=== PATIENT | male | born 1955 | race Caucasian/White ===

== ENCOUNTER 2016-09-03 10:11 | Observation (INO) ==
[2016-09-03] MEDS ORDERED: NS 2,000 ML ONE (10:16)
[2016-09-03] MEDS ORDERED: NS 1,000 ML IV ONE (10:22)
[2016-09-03] MEDS ORDERED: REGLAN IV ONE (10:23)
[2016-09-03] MEDS ORDERED: PHENERGAN IV ONE (10:23)
[2016-09-03] MEDS ORDERED: SODIUM CHLORIDE 0.9% INJ ONE (10:23)
[2016-09-03 10:33] LABS: MANUAL DIFF NEEDED? NO
[2016-09-03 10:36] LABS: EOS# 0.18 X1000 (0.0-0.7); EOS% 2.2 % (0.0-10.0); HEMATOCRIT 43.6 % (42.0-52.0); HEMOGLOBIN 13.4 g/dL (14.0-18.0); IMM GRAN# 0.18 X1000 (0.0-0.04); IMM GRAN% 2.2 % (0.0-0.5); LYMPH# 1.51 X1000 (1.2-3.4); LYMPH% 18.6 % (20.5-51.1); MCH 28.2 PG (27-31); MCHC 30.7 g/dL (33-37); MCV 91.6 FL (81-99); MONO% 4.9 % (1.7-9.3); MPV 10.8 FL (7.4-10.4); NEUT% 71.1 % (42.2-75.2); PLT 183 X1000 (130-400); RBC 4.76 XMIL (4.7-6.1)
[2016-09-03 10:52] LABS: ALBUMIN 3.6 g/dL (3.5-5.0); POTASSIUM 3.9 mmol/L (3.5-5.1); TOTAL BILIRUBIN 0.22 mg/dL (0.20-1.00); TOTAL PROTEIN 5.9 g/dL (6.3-8.3)
--- NOTE | 2016-09-03 11:40 | Diag Imaging Result Doc PS360 ---
FLAT/UPRIGHT ABD/1 VIEW CHEST - 09/03/2016 INDICATION: vomiting and diarrhea TECHNIQUE: Three views COMPARISON: 11/03/2015 FINDINGS: The chest is clear. There are numerous stable suture lines and surgical clips in the upper abdomen. Stable IVC filter. Stable densities over the inferior lumbar spine. No bowel obstruction or free air visible. IMPRESSION: No acute disease or change from prior. Electronically signed by Chet Hammer 09/03/2016 11:38 AM
--- NOTE | 2016-09-03 13:24 | PROVIDER DOCUMENTATION ---
This chart was entered by Ary Dietrich Scribe, acting as scribe for Danyel Steward MD. HPI-General Adult - General Chief Complaint: Nausea/Vomiting Stated Complaint: AMS Time Seen by Provider: 09/03/16 10:23 Source: patient, family (Son and ) Allergies/Adverse Reactions: Patient Allergies Allergy/AdvReac Type Severity Reaction Status Date / Time No Known Allergies Allergy Verified 09/03/16 10:54 Home Medications: Home Medication List Medication Instructions Recorded Confirmed Last Taken Type Fludrocortisone [Florinef] 0.1 mg PO DAILY #0 tablet 12/30/11 11/03/15 11/03/15 09:00 Rx Alprazolam [Xanax] 0.5 mg PO BID 04/02/13 11/03/15 11/03/15 09:00 History Fluoxetine [Prozac] 40 mg PO DAILY 04/02/13 11/03/15 11/03/15 09:00 History Hydrocodone/APAP 10 mg/325 mg 10 mg PO TID 04/02/13 11/03/15 06/28/15 05:00 History [[place]-10] Metoprolol [Lopressor] 50 mg PO DAILY 04/02/13 11/03/15 11/03/15 09:00 History Zolpidem [Ambien] 5 mg PO QHS 04/02/13 11/03/15 11/02/15 20:00 History Fluticasone 50 Mcg Nasal [place] 1 spray KENN DAILY 09/27/13 11/03/15 06/28/15 History [Flonase] Prednisone 7.5 mg PO DAILY 09/27/13 11/03/15 06/28/15 History Diphenoxylate/Atropine [Lomotil] 1 each PO PRN PRN 12/09/14 11/03/15 Unknown History Omeprazole [Prilosec] 20 mg PO DAILY 12/09/14 11/03/15 11/03/15 09:00 History Promethazine [Phenergan] 25 mg PO Q8H PRN PRN 12/09/14 11/03/15 Unknown History Acetaminophen/Diphenhydramine 1 each PO Q6-8H PRN PRN #30 tablet 06/28/15 Unknown Rx [Percogesic 325-12.5 mg Tablet] Tizanidine HCl [Zanaflex] 4 mg PO BID 06/28/15 11/03/15 11/03/15 09:00 History Docusate Sodium [Colace] 100 mg PO DAILY #10 capsule 11/03/15 Unknown Rx Donepezil [Aricept] 10 mg PO DAILY 11/03/15 11/03/15 11/03/15 09:00 History Magnesium Citrate [Citrate of 300 ml PO ONCE #1 bottle 11/03/15 Unknown Rx Magnesia] Memantine [Namenda] 10 mg PO BID 11/03/15 11/03/15 11/03/15 09:00 History Na Phos,M-B/Na Phos,Di-Ba [Fleet 133 ml ME HS PRN PRN #3 enema 11/03/15 Unknown Rx Enema] Ranitidine [Zantac] 150 mg PO BID 11/03/15 11/03/15 11/03/15 09:00 History - History of Present Illness -Gen Adult Nature of Presenting Problems: 60 year old male presents to the ER via EMS with complaint of syncope episode. Pt is present with son and . Pt has dementia as well as chronic diarrhea but states in the last 2-3 days the diarrhea has become worse and in the last 2 days the patient has experienced n/v episodes. Prior to calling EMS, pt became confused and slumped over to one side. Pt is currently awake and more aware. Onset/Duration: reports: 3 days ago Associated Symptoms: reports: diarrhea, nausea, vomiting Review of Systems - Adult - REVIEW OF SYSTEMS - ADULT Constitutional: denies: chills, fever Eyes: reports: no symptoms reported Ears, Nose, Mouth & Throat: reports: no symptoms reported Cardiovascular: reports: no symptoms reported Respiratory: reports: no symptoms reported Gastrointestinal: reports: diarrhea, nausea, vomiting Genitourinary: reports: no symptoms reported Musculoskeletal: reports: no symptoms reported Integumentary: reports: no symptoms reported Neurological: reports: loss of balance, syncope Psychiatric: reports: no symptoms reported Endocrine: reports: no symptoms reported Hematologic/Lymphatic: reports: no symptoms reported Allergic/Immunologic: reports: no symptoms reported All Other Systems: Reviewed and Negative Past History - Adult - PAST MEDICAL HISTORY-ADULT Review of Records: reports: Nursing Assessment Review, Medications Reviewed Cardiovascular: reports: blood clots, HTN Respiratory: reports: pneumonia (BOOP) Genitourinary: reports: kidney stones - PRIOR SURGERIES/PROCEDURES Surgical/Procedure History: reports: joint replacement, other - IMMUNIZATION STATUS Childhood Immunizations: See Nurse Assessment Flu Vaccine: See Nurse Assessment Physical Exam-General - CONSTITUTIONAL General Appearance: alert, no apparent distress - EYES Eyes: PERRL/EOMI, pink conjunctivae - HEAD, EARS, NOSE, MOUTH & THROAT HENMT: normocephalic/atraumatic. negative: moist mucous membranes - NECK Neck: non-tender, normal inspection - RESPIRATORY Respiratory: rales (right lung) - CARDIOVASCULAR Cardiovascular: normal peripheral pulses, regular rate, rhythm - GASTROINTESTINAL (ABDOMEN) Abdominal Exam: normal bowel sounds, non tender - MUSCULOSKELETAL Back Exam: no CVA tenderness, no vertebral tenderness Extremity: normal range of motion, normal inspection - SKIN Integumentary: normal color, warm/dry - NEUROLOGIC Neurologic: grossly normal, no motor/sensory deficits - PSYCHIATRIC Psych/Mental Status: normal mood/affect, normal thought process Progress - PLAN OF CARE/RESULTS Progress/Plan/Lab Results: Vital Signs - 8 hr 09/03/16 10:12 Temperature 97.9 F Pulse Rate 59 L Respiratory Rate 18 Blood Pressure 68/44 O2 Sat by Pulse Oximetry 95 Orders Category Date Time Status 0.9% Sodium Chloride Inj [Ns] 1,000 ml Med 09/03/16 10:16 Discontinued .ROUTE As Directed Result Diagrams: 09/03/16 10:08 09/03/16 10:08 - EKG 1 Time of EKG reading by physician:: 09:52 EKG Read and Signed by:: Danyel Steward EKG Interpretation (*Must complete 3 of following elements*): Abnormal Rate: 59 Rhythm: sinus bradycardia QRS: LVH (voltage criteria for left ventricular hypertrophy) ST Wave: elevated (ST elevation, consider early repolarization, pericarditis, or injury) Comments: abnormal ECG - CONSULTS/PCP/HOSPITALIST Notification #1 *Consult/PCP/Hospitalist*: Christ Time Discussed: 13:20 Consult Disposition: Will see in ED Departure - Departure Date of Disposition Decision: 09/03/16 Time of Disposition Decision: 13:20 DIAGNOSIS: Dehydration, severe Vomiting Qualifiers: Vomiting type: unspecified Vomiting Intractability: unspecified Nausea presence : with nausea Qualified Code(s): R11.2 - Nausea with vomiting, unspecified Disposition: [facility] 02 Certified Medical Emergency: Emergent Condition: Stable - Critical Care Note This patient required my direct & personal management of CC.: No This chart was documented by the indicated scribe, (Ary Dietrich, Scribe) and accurately reflects the services I performed and decisions made by me, Danyel Steward MD, as attested by the provider's signature.
--- NOTE | 2016-09-03 14:02 | Diag Imaging Result Doc PS360 ---
HEAD W/O CONTRAST - 09/03/2016 INDICATION: Headache, Syncope, Nausea/vomiting TECHNIQUE: A CT dose reduction protocol was used. COMPARISON: 11/03/2015 FINDINGS: The ventricles and sulci are normal in size and contour. No intracranial mass or hemorrhage. The skull is intact. The sinuses mastoids and middle ears are clear. IMPRESSION: Negative exam. Electronically signed by Chet Hammer 09/03/2016 2:00 PM
[2016-09-03] MEDS ORDERED: ZOFRAN IV PRN (16:10)
[2016-09-03] MEDS ORDERED: LOMOTIL PO PRN (16:10)
[2016-09-03] MEDS: NS 1,000 ML IV SCH (16:17)
--- NOTE | 2016-09-03 16:46 | HISTORY AND PHYSICAL ---
PRIMARY CARE PHYSICIAN: Dr. Wray. CHIEF COMPLAINT: Syncope. HISTORY OF PRESENT ILLNESS: Mr. Alonzo is a 60-year-old male with a past medical history of Alzheimer's dementia, GERD, hypertension, chronic kidney disease, anxiety, copper deficiency, coronary artery disease status post cardiac stent, who presented to the emergency room after having a syncopal episode today. The patient's spouse reports that she witnessed him have a syncopal episode that lasted approximately 20 minutes. He did not have any kind tonic-clonic movement or any urinary incontinence with the episode or any preceding chest pain or additional symptoms. He did have a period of being coherence and confusion initially right after the episode for some time, she reports. He has had a headache and nausea and vomiting over the last week, vomiting several times a day. She denies any blood in his emesis or stool. No recent fever or chills. No recent antibiotics or other symptoms. He denies any vision changes. He denies any numbness and then denies any unilateral weakness. He also has had a decreased appetite and also of note has had diarrhea intermittently for a year and a half, she reports. The patient will be admitted for further evaluation and treatment. PAST MEDICAL HISTORY: 1. Alzheimer's dementia. 2. Gastroesophageal reflux disease. 3. Hypertension. 4. Kidney stones. 5. Chronic kidney disease. 6. Anxiety. 7. DVT. 8. Arthritis. 9. Copper deficiency. 10. Coronary artery disease status post cardiac stent. 11. Hiatal hernia. PAST SURGICAL HISTORY: 1. Appendectomy. 2. Cholecystectomy. 3. Esophagus revision. 4. Gastrectomy secondary to complications from a hiatal hernia repair. 5. Transurethral resection of the prostate. 6. Right knee arthroscopy. 7. IVC filter. 8. Cardiac stent. 9. Cervical fusion. SOCIAL HISTORY: Patient is a nonsmoker. He is a former smoker. He quit approximately 1 year ago and had smoked for 40 years prior to this. He denies any alcohol or drug use. He does live with his . FAMILY HISTORY: Positive for prostate cancer with his father, coronary artery disease with his father and several brothers, positive CVA with his mother, and positive brain cancer with his brother. ALLERGIES: No known drug allergies. MEDICATIONS: Pending reconciliation. LABORATORIES AND DIAGNOSTICS: CBC: White count 8.13, hemoglobin and hematocrit 13.4 and 43.6, platelets 183,000. BMP: Sodium 141, potassium 3.9, chloride 106, CO2 19, BUN 22, creatinine 1.9, glucose 192, calcium 8, AST 32, ALT 45, alkaline phosphatase 123. Abdominal x-ray which shows no acute abnormality. Head CT was negative for any acute abnormality. Initial troponin and CPK were within normal limits. REVIEW OF SYSTEMS: Ten point review of systems negative other than previously stated in HPI. PHYSICAL EXAMINATION: VITAL SIGNS: Temperature 97.9 degrees, pulse 59, respirations 18, blood pressure initially was 68/46, after he has received some IV fluid it is currently 95/67, oxygen saturation 95% on room air. HEENT: Normocephalic, atraumatic. Mucous membranes slightly moist. Face symmetrical. NECK: Supple. No JVD. CHEST: Bilateral breath sounds diminished. No accessory muscle use noted. CARDIOVASCULAR: Normal S1, S2. ABDOMEN: Abdomen is soft, nontender, nondistended. Positive bowel sounds. EXTREMITIES: No evidence of clubbing, cyanosis, or edema. NEUROLOGIC: Patient is alert and oriented x4. No neurological deficits noted. Pupils equal, round, reactive to light. Bilateral hand grasps equal. No dysmetria noted to upper extremities. Bilateral lower extremity strength equal. ASSESSMENT AND PLAN: 1. Syncope. Will admit and evaluate with carotid ultrasound as well as echo and serial cardiac enzymes. Head CT was negative. 2. Headache. Patient with continued headache and nausea, vomiting. He has previously been diagnosed with migraines according to family member. This could be a component as well. CT was negative. 3. Hypotension. Will continue to follow. He is on several medications. We will hold any medications that could cause hypotension and continue to monitor this with hydration. 4. Nausea, vomiting. We will provide antiemetics and hydration. 5. Diarrhea. We will continue to follow. 6. Chronic kidney disease. This appears to his norm. Last year at this time his creatinine was 1.8. 7. Hyperglycemia. We will perform a hemoglobin A1c and continue to follow. 8. Further orders pending physician evaluation. Dictated by JOSH Harrington for Aldair Larsen MD cc: JOSH Harrington MD
[2016-09-03 17:11] LABS: HEMOGLOBIN A1C 5.6 % (4.8-6.0)
[2016-09-03 19:29] LABS: URINE CULTURE NEEDED? NO; URINE MICRO REVIEW NEEDED? NO; URINE SOURCE CLEAN CATCH
[2016-09-03 19:32] LABS: BILIRUBIN URINE NEGATIVE (NEGATIVE); BLOOD URINE NEGATIVE (NEGATIVE); COLOR YELLOW; GLUCOSE URINE NEGATIVE (NEGATIVE); LEUKOCYTES URINE NEGATIVE (NEGATIVE); NITRITE URINE NEGATIVE (NEGATIVE); PROTEIN URINE NEGATIVE (NEGATIVE); SP GRAVITY URINE 1.014; TURBIDITY URINE CLEAR (CLEAR); UROBILINOGEN URINE NORMAL (NORMAL)
[2016-09-03 19:33] LABS: UR EPITHELIAL CELLS <10 /HPF (<10); URINE BACTERIA NEGATIVE /HPF; URINE RBC <10 /HPF (<10); URINE WBC <10 /HPF (<10)
[2016-09-03] MEDS: NAMENDA PO SCH (20:20)
[2016-09-03] MEDS: ZANTAC PO SCH (20:20)
[2016-09-04] MEDS: NS 1,000 ML IV SCH ×2 (05:04→18:36)
[2016-09-04 05:13] LABS: HEMATOCRIT 40.6 % (42.0-52.0); HEMOGLOBIN 12.5 g/dL (14.0-18.0); MCH 28.2 PG (27-31); MCHC 30.8 g/dL (33-37); MCV 91.4 FL (81-99); RBC 4.44 XMIL (4.7-6.1)
[2016-09-04 05:46] LABS: ALBUMIN 3.5 g/dL (3.5-5.0); POTASSIUM 3.9 mmol/L (3.5-5.1); TOTAL BILIRUBIN 0.32 mg/dL (0.20-1.00); TOTAL PROTEIN 5.6 g/dL (6.3-8.3)
[2016-09-04] MEDS: PRILOSEC PO SCH (06:17)
[2016-09-04] MEDS: PREDNISONE PO SCH (09:23)
[2016-09-04] MEDS: PROZAC PO SCH (09:23)
[2016-09-04] MEDS: NAMENDA PO SCH ×3 (09:23→20:00)
[2016-09-04] MEDS: ZANTAC PO SCH ×3 (09:23→20:00)
[2016-09-04] MEDS: ARICEPT PO SCH (09:24)
[2016-09-04] MEDS: FLORINEF PO SCH (09:24)
[2016-09-04 10:42] LABS: AMYLASE 53 U/L (20-200); LIPASE 10 U/L (13-60)
--- NOTE | 2016-09-04 10:57 | PROGRESS NOTE ---
DATE: 09/04/2016 SUBJECTIVE: Patient reports feeling fine. No more episodes of syncope. No chest pain. No shortness of breath. He is still having diarrhea but he reports that it is better. OBJECTIVE: Vital Signs: Temperature 97.8 degrees, heart rate 58, respiratory rate 18, blood pressure 155/79, O2 saturation 99% on room air. General Examination: This is a chronically ill- looking, 60-year-old, male, looking older than his age, lying in bed, in no acute distress. HEENT: Head is normocephalic and atraumatic. Anicteric sclerae and pale conjunctivae. Mucous membranes moist. Neck: Supple. No JVD noted. No carotid bruits. No lymphadenopathy. No thyromegaly. Cardiovascular Examination: S1 and S2 heard. No murmurs, gallops, or rubs. Regular rate and rhythm. Respiratory Examination: Clear bilaterally to auscultation. No work of breathing or using accessory muscles. Abdomen: Soft, nontender to palpation. Bowel sounds present. No organomegaly. Extremities: No clubbing, cyanosis, or edema. Peripheral pulses present in both legs. Neurological Examination: Patient alert and oriented x3. Moves 4 extremities. Laboratory Data: White cell count 7.49, hemoglobin 12.5, hematocrit 40.6, platelets 163,000. BMP remarkable for creatinine 1.3, calcium 8. ASSESSMENT AND PLAN: 1. Syncope. We do not know exactly why this patient had syncope. At this time, what we have done is ordered a CT of the head which is negative. A carotid ultrasound and echocardiogram are still pending. We will continue this patient on telemetry, 2. Headaches. Patient usually has headaches, although the 1 that he had yesterday, according to him, was really worse than usual. A CT of the head did not show any bleeding but to complete the workup, I prefer to do an MRI of the brain without contrast. 3. Hypotension. That condition is stable. Patient has been on intravenous fluids and all antihypertensive medication has been stopped. Now blood pressure is in the range of 151/70. If it goes higher than that, we need to restart some of his medications. 4. Nausea and vomiting. That condition has completely resolved. 5. Chronic diarrhea. Patient had bariatric surgery 30 years ago. Since then, he has had diarrhea that has been going on for that period of time. In any case, we prefer to call gastroenterology. Patient already let me know that he refused to have any procedures provided by gastroenterology but he it is okay to talk to him. 6. Chronic kidney disease, although the 1 year ago, the creatinine was 1.8 and yesterday was 1.7. Surprisingly, the creatinine is getting better. We will continue checking BMP. 7. Hyperglycemia. We have checked hemoglobin A1c and that is normal and also the BMP, the glucose was back to normal too. cc: Aldair Larsen MD
--- NOTE | 2016-09-04 13:45 | Diag Imaging Result Doc PS360 ---
US ABDOMEN-COMPLETE - 09/04/2016 INDICATION: transient elevated liver enzymes COMPARISON: 09/07/2011 FINDINGS: The gallbladder has been removed. Common bile duct measures 5 mm. The pancreas is obscured. The liver, spleen, and both kidneys are normal. Spleen size is 11.6 x 11.3 x 5 cm. Aorta, IVC, and main portal vein are patent. No free fluid. IMPRESSION: Negative exam. Electronically signed by Chet Hammer 09/04/2016 1:43 PM
--- NOTE | 2016-09-04 15:14 | ECHO REPORT ---
ORDER DATE: 09/04/2016 INDICATION: Syncope. FINDINGS: 1. Right atrium is normal size. 2. Mild tricuspid regurgitation. RV systolic pressure of 45. 3. Normal RV size and systolic function. 4. No significant pulmonic insufficiency. 5. Mild left atrial enlargement at 4.9 cm. 6. There is slight prolapse of the posterior mitral leaflet with trace mitral regurgitation. No evidence of mitral stenosis. 7. Normal LV size with normal wall thicknesses. LV systolic function is calculated at 54% with normal wall motion. Some views in the short axis the parasternal short axis were off axis. 8. Aortic valve opens well. It is trileaflet. No evidence of stenosis or insufficiency. 9. Aorta appears normal in visualized segments. 10. No pericardial effusion seen. cc: MD Lissett Whaley CRNP
[2016-09-04] MEDS: METAMUCIL PO SCH ×4 (19:53→20:00)
[2016-09-04 20:13] LABS: INR 1.21; PROTIME 12.9 Seconds (9.2-11.7)
[2016-09-04] MEDS ORDERED: AMBIEN PO SCH (21:00)
[2016-09-04] MEDS ORDERED: COUMADIN PO SCH (21:30)
--- NOTE | 2016-09-04 21:41 | CONSULTATION ---
DATE OF CONSULTATION: 09/04/2016 REASON FOR CONSULTATION: Chronic diarrhea. HISTORY OF PRESENT ILLNESS: Mr. Alonzo is a 60-year-old male, who was admitted on 09/03/2016 with symptoms of syncope. Currently according to the patient's records, the patient had a syncopal episodes lasting about 20 minutes at home. He has a known history of coronary artery disease status post stenting, chronic kidney disease, copper deficiency, Alzheimer's dementia, GERD, hypertension, chronic kidney disease. He is currently undergoing cardiac workup. Gastroenterology was consulted for chronic diarrhea. The patient has history of chronic diarrhea the last 30 years. When he was 29 years old the patient had a hiatal hernia surgery done [place]. It was complicated and he lost about 100 pounds. He went to [facility] where he had 11-hour surgery where they had to take a part of his distal esophagus and 2/3 of his stomach and postoperatively he had symptoms of episodic chronic diarrhea. His regular bowel frequency are about 5-7 per day. He does have nocturnal diarrhea episodes as well. He denies noticing any blood in the stools. He also complains of intermittent bloating discomfort in the abdomen. He denies any current nausea or vomiting. His last EGD/colonoscopy was done by Dr. Reeves in 2011 which showed evidence of partial gastrectomy and anastomosis in the distal body of the stomach and about 37 cm of esophagus left. His colon was normal, but did have some stool and he was recommended to follow up in 5 years to 10 years. PAST MEDICAL HISTORY: 1. Alzheimer's dementia. 2. GERD. 3. Hypertension. 4. Kidney stones. 5. Chronic kidney disease. 6. Anxiety. 7. DVT. 8. Arthritis. 9. Copper deficiency. 10. Coronary artery disease status post cardiac stent. 11. Hiatal hernia. PAST SURGICAL HISTORY: 1. Appendectomy. 2. Cholecystectomy. 3. Hiatal hernia repair 30 years ago. 4. Hiatal hernia surgery revision requiring distal esophagectomy and 2/3 of the stomach removal accounting for subtotal gastrectomy at [facility]. 5. Transurethral resection of the prostate. 6. Right knee arthroscopy. 7. IVC filter. 8. Cardiac stent. 9. Cervical fusion. 10. EGD/colonoscopy in [address] Reeves. SOCIAL HISTORY: He is a former smoker. Quit about a year ago. Prior to that, 40 year history of smoking. Denies any alcohol or illicit drug abuse. He is . He has a very supportive at the bedside. FAMILY HISTORY: Prostate cancer in his father and coronary artery disease in his father and several brothers and CVA in his mother and brain cancer in his brother. ALLERGIES: No known drug allergies. MEDICATIONS: Reviewed. REVIEW OF SYSTEMS: Denies any current fevers, rigors, chills, chest pain, shortness of breath at rest. Denies any new genitourinary complaints. Denies any neurologic complaints. At home he did have syncopal episode which is currently being investigated by the primary care team. PHYSICAL EXAMINATION: Vital signs: Temperature of 98.3 degrees, pulse rate 65 , respiratory rate 16, blood pressure 169/90, saturating 98% room air. Body weight of 179 pounds 4.8 ounces, BMI 24.3 kg/m2. General: Moderately built, moderately nourished, lying in bed, in no acute distress. HEENT: No pallor. No icterus. Pupils equal, react to light. Neck : Supple. Chest: Decreased breath sounds. Cardiovascular: Regular rate and rhythm. No murmur. Abdomen: Mildly protuberant, scar storm noted from prior surgery. Bowel sounds are present. No guarding. No rebound. Extremities: No cyanosis, clubbing, edema. Neurologic: Alert, awake, oriented. LABORATORY: Hemoglobin and hematocrit is 12.5 and 40.6, white count of 7.49, platelet count 163,000, MCV of 91.4. Sodium 145, potassium 3.9, chloride 113, bicarb 23, anion gap of 9, BUN of 16, creatinine 1.3, glucose of 81, calcium is 8, total bilirubin is 0.32, AST 25 , ALT 36, alkaline phosphatase is 101. Total protein 5.6, albumin of 3.5, troponin less than 0.01. Amylase of 50, lipase of 10. Urinalysis clear. IMAGIN. He had an abdominal ultrasound done on 09/01/2016 which showed negative exam. CBD measuring 5 mm. Spleen size 11.6 and 11.3 cm. The gallbladder has been removed. 2. Abdominal x-ray on 09/03/2016 showed no acute disease pr change from prior. Stable IVC filter. No bowel obstruction. 3. Head CT done during this admission was negative exam. IMPRESSION AND PLAN: 1. Syncope. Unclear etiology. Currently undergoing workup. We will await cardiology clearance before proceeding with gastrointestinal workup. 2. Chronic diarrhea since 30 years after hiatal hernia revision surgery where he had distal esophagitis and subtotal gastrectomy. It could very well be dumping syndrome , but we will evaluate. 3. History of alternating diarrhea with some days of constipation. Could be irritable bowel syndrome. We will check the stool studies. 4. History of coronary artery disease status post stenting. I will follow up on the cardiology workup. 5. Gastrointestinal prophylaxis with proton pump inhibitor. 6. We will start him on Metamucil to help empty his bowels better. 7. Further recommendations to follow pending the hospital course. If the patient gets cleared by Cardiology, he can probably be discharged to follow with us as an outpatient for possible EGD and colonoscopy. 8. I discussed the findings with the patient and family. cc: MD Aldair Khan MD Akram Haggag, MD MTDD
[2016-09-05 05:25] LABS: INR 1.17; PROTIME 12.4 Seconds (9.2-11.7)
--- NOTE | 2016-09-05 05:34 | EKG Report ---
Test Performed on : 09/03/2016 09:52:43 AM Test Reason : syncope Blood Pressure : / mmHG Vent. Rate : 059 BPM Atrial Rate : 059 BPM P-R Int : 174 ms QRS Dur : 098 ms QT Int : 482 ms P-R-T Axes : 007 -15 -17 degrees QTc Int : 477 ms Sinus bradycardia. Voltage criteria for left ventricular hypertrophy ST elevation, consider early repolarization, pericarditis, or injury Abnormal ECG When compared with ECG of 03-NOV-2015 13:08, T wave amplitude has decreased in Lateral leads Unconfirmed Result
[2016-09-05] MEDS: NS 1,000 ML IV SCH ×2 (06:08→08:18)
[2016-09-05] MEDS: PRILOSEC PO SCH (06:08)
[2016-09-05] MEDS: NAMENDA PO SCH (08:14)
[2016-09-05] MEDS: PROZAC PO SCH (08:14)
[2016-09-05] MEDS: ZANTAC PO SCH (08:14)
[2016-09-05] MEDS: PREDNISONE PO SCH (08:14)
[2016-09-05] MEDS: FLORINEF PO SCH (08:15)
[2016-09-05] MEDS: ARICEPT PO SCH (08:15)
[2016-09-05] MEDS: METAMUCIL PO SCH ×2 (08:15)
[2016-09-05] MEDS ORDERED: NORCO-10 PO PRN (08:47)
[2016-09-05] MEDS ORDERED: ZANAFLEX PO SCH (09:00)
[2016-09-05] MEDS ORDERED: LOPRESSOR PO SCH ×2 (09:00)
--- NOTE | 2016-09-05 09:14 | Diag Imaging Result Doc PS360 ---
EXAM: MRI BRAIN W/O CONTRAST INDICATION: syncope COMPARISON: 12/04/2012 FINDINGS: There is no evidence of acute infarct. There is minimal patchy T2/FLAIR hyperintensity in the periventricular and subcortical white matter suggesting very mild microangiopathy, stable. There is an incidental small developmental venous anomaly in the right parietal lobe, stable. There is a small left periventricular chronic lacunar infarct that has developed during the interval. There is low signal associated with this region on the coronal gradient sequence indicating old blood products, but it was not present previously. There is no discrete intracranial mass, mass effect, or acute intracranial hemorrhage, otherwise. The surrounding soft tissues and bony structures are essentially unremarkable. IMPRESSION: 1.Minimal stable chronic appearing white matter changes. 2.Interval development of a small chronic lacunar infarct in the periventricular white matter with evidence of old blood products/hemosiderin in the region. 3.No definite acute intracranial pathology. Electronically signed by Geovanny Dowd 09/05/2016 9:11 AM
--- NOTE | 2016-09-05 12:04 | PROGRESS NOTE ---
DATE: 09/05/2016 SUBJECTIVE: The patient is resting in a chair. He is feeling better. He had 1 bowel movement today. He denies any nausea, vomiting, or abdominal pain. Denies any history of seeing blood in the stools. He denies any fevers, rigors, or chills. He had an MRI this morning of his brain which showed minimal stable chronic appearing white matter changes, interval development of small chronic lacunar infarct in the periventricular white matter with evidence of old blood products/hemosiderin in the region, no definite acute intracranial pathology was noted. OBJECTIVE: Vital Signs: Temperature of 98.6 degrees, pulse rate of 67, respiratory rate of rate 18, blood pressure of 199/89, saturating 97% on room air. Body weight of 181 pounds 6.4 ounces. General Appearance: Moderate built, moderately nourished, sitting in a chair, in no acute distress. HEENT: No pallor. No icterus. Pupils equal, react to light and accommodation. Neck: Supple. Abdomen: Soft, nontender, nondistended. Bowel sounds are present. No guarding. No rebound. Extremities: No cyanosis or clubbing. Neurologic: Alert, awake, oriented. Labs: Hemoglobin and hematocrit are 12.4 and 40.6 from yesterday. Today, INR is 1.17, PT of 12.4. No other labs were drawn today. Stool Studies: Gram stain is none. No white cells. Stool culture preliminary , no enteric pathogens. Stool for white cells, none seen. Ova and parasites negative. Final results are pending. C. difficile toxin negative, antigen negative. IMPRESSION AND PLAN: 1. Chronic diarrhea for the last 30 years. It could be irritable bowel syndrome versus incomplete emptying of the colon from prior abdominal surgeries. We will give a trial of Metamucil 1tbsp PO BID. Stool studies have been unremarkable. We will follow the final results. 2. Syncope of unclear etiology. He is undergoing workup. 3. History of atrial fibrillation, coronary artery disease, status post stenting. He is on Coumadin per the primary team. 4. Gastrointestinal prophylaxis with proton pump inhibitors. 5. Bowel regimen, Metamucil. 6. We are not planning to perform EGD and colonoscopy during this admission. Once he is cleared from the syncope workup, then he will call us as an outpatient to schedule EGD and colonoscopy. His Coumadin will have to be held 5-7 days before performing EGD and colonoscopy in the near future. 7. The above plan was discussed with the patient. All his questions were answered. cc: MD Cathie Khan MD Dr. Garcia MTDD
[2016-09-05 12:30] VITALS: BP 132/60
--- NOTE | 2016-09-05 20:55 | Carotid Study ---
DATE: 09/04/2016 PROCEDURE: Bilateral duplex and color flow imaging of the carotid arteries was performed using a [employer] Vivid E9 ultrasound system and a 9L-D transducer. REFERRING PHYSICIAN: Dr. Polo INTERPRETING PHYSICIAN: NASIMA Mike INDICATIONS: Syncope. OBSERVED DATA RIGHT LEFT Brachial Blood Pressure Carotid Pulse Bruits: Carotid/Sub DIAGRAM OF ULTRASOUND IMAGING R L RIGHT INT EXT INT EXT LEFT Pablo (cm/s) Pablo (cm/s) Subclavian 90/0 Subclavian 92/0 CCA Proximal 74/9 CCA Proximal 81/12 CCA Distal 80/15 CCA Distal 50/9 Bulb 47/11 Bulb 52/14 ICA Proximal 40/11 ICA Proximal 40/14 ICA Mid 54/21 ICA Mid 55/25 ICA Distal 70/26 ICA Distal 67/28 ECA 71/10 ECA 65/9 Vertebral 33/10, antegrade flow Vertebral 47/10, antegrade flow ICA/CCA Ratio 0.87 ICA/CCA Ratio 0.3 % Stenosis 0-39% % Stenosis 0-39% FINDINGS: Minimal atherosclerosis that at this time does not produce any hemodynamically significant flow-limiting stenosis noted to bilateral carotid arteries. Both vertebral arteries are antegrade flow. PHYSICIAN INTERPRETATION: Essentially normal bilateral carotid ultrasound study with no hemodynamically significant flow-limiting stenosis. cc: MD Lissett Harris CRNP
[2016-09-05] MEDS ORDERED: COUMADIN PO SCH (21:00)
--- NOTE | 2016-09-06 14:22 | DISCHARGE SUMMARY ---
ADMISSION DATE: 09/03/2016 DISCHARGE DATE: 09/05/2016 CONSULTATIONS: Dr. Ingram with Gastroenterology PERTINENT PROCEDURES: 1. Head CT was a negative exam. 2. Abdominal ultrasound was negative exam. 3. Echocardiogram showed an EF of 54% with normal wall motion. 4. Brain MRI showed minimal stable chronic-appearing white matter changes, interval development of small chronic lacunar infarct in the periventricular white matter with evidence of old blood products, hemosiderin in the region. No definite acute intracranial pathology. DISCHARGE DIAGNOSES: 1. Chronic diarrhea for 30 years, irritable bowel syndrome versus incomplete emptying of the colon from prior abdominal surgeries. The patient is going to be on a trial of Metamucil. Stool studies have been unremarkable. Patient will follow up with Dr. Ingram for esophagogastroduodenoscopy and colonoscopy as an outpatient. 2. Syncope. CT of the head was negative. Echocardiogram showed an EF of 54% with normal wall motion. Carotid Dopplers have not resulted yet. No arrhythmias have been noted on the telemetry. Patient did undergo a brain MRI that showed minimal stable chronic-appearing white matter changes, interval development of small chronic lacunar infarct in the periventricular white matter with evidence of blood products, hemosiderin in the region. No definite acute intracranial pathology. 3. Headaches that are chronic. 4. Hypotension, resolved. 5. Nausea and vomiting, resolved. 6. Chronic kidney disease, stable. 7. Hyperglycemia. Patient's A1c was 5.6. Blood glucose on arrival was 192 and is now back to 81. 8. History of atrial fibrillation and coronary artery disease, status post stenting, on Coumadin therapy. HOSPITAL COURSE: Mr. Alonzo is a 60-year-old male with a past medical history of Alzheimer dementia, GERD, hypertension, chronic kidney disease, anxiety, copper deficiency , coronary artery disease status post stenting, on Coumadin therapy, who presented to the ED after having a syncopal episode that was witnessed by his spouse and lasted approximately 20 minute. He did not have any tonic clonic type movements or urinary incontinence with the episode or any preceding chest pain or additional symptoms. He did have a period of being incoherent and confused initially, right after the episode, lasting for some time. He has had a headache, nausea, and vomiting over the last week, vomiting several times a day. He denies any blood in it or in stool. No recent fever or chills. He denied any numbness or any unilateral weakness. Also noted diarrhea intermittently for 1-1/2 years. The patient underwent a head CT in the ED that was negative. He also underwent a carotid ultrasound and we are still awaiting those results. An echocardiogram showed an EF of 54%. Serial cardiac enzymes are negative. He did have some hypotension and he had some IV fluid resuscitation. His blood pressure medications were held. His nausea and vomiting completely resolved. He does have chronic diarrhea secondary to bariatric surgery that he had 30 years ago. GI was consulted to assess the patient. He also underwent a brain MRI that showed minimal stable chronic-appearing white matter changes and interval development of small chronic lacunar infarct in the periventricular white matter with evidence of old blood products, hemosiderin in the region. No definite acute intracranial pathology. Dr. Ingram was not planning to perform any EGD and colonoscopy during this admission. They could schedule it as an outpatient EGD and colonoscopy, and he will place him on Metamucil. His stool studies have been unremarkable. Dr. Polo has assessed the patient and feels he is appropriate for discharge home today. VITAL SIGNS ON DISCHARGE: Temperature is 98.3 degrees, heart rate 58, blood pressure 132/60, O2 is 98% on room air. DISCHARGE DIET: Regular. DISCHARGE MEDICATIONS: 1. Xanax 0.5 mg p.o. b.i.d. 2. Aricept 20 mg p.o. daily. 3. Florinef 0.1 mg p.o. daily. 4. Prozac 40 mg p.o. daily. 5. [place] 10/325, 10 mg p.o. t.i.d. p.r.n. 6. 10 mg p.o. b.i.d. 7. Lopressor 50 mg p.o. daily. 8. Prilosec 20 mg p.o. daily. 9. Prednisone 50 mg p.o. daily. 10. Phenergan 25 mg p.o. q.8 hours p.r.n. nausea. 11. Metamucil 1 each p.o. b.i.d. 12. Zantac 150 mg p.o. b.i.d. 13. Zanaflex 4 mg p.o. b.i.d. 14. Coumadin 2.5 mg p.o. on Monday, Monday, Monday at 2100. 15. Coumadin 5 mg p.o. Monday and Monday at 2100. 16. Ambien 5 mg p.o. at bedtime. FOLLOWUP: Patient is being discharged home with his . He will follow up with Dr. Ingram to schedule for outpatient EGD and colonoscopy. They have discussed that when this is scheduled, he will need to hold his Coumadin for 5-7 days prior to the procedure. He can follow up with his primary care physician, Dr. Cathie Wray, in 7-10 days. Patient can return to the ED for any worsening of symptoms. DISCHARGE TIME: Thirty five minutes. Dictated by JOSH Snow for Aldair Larsen MD cc: MD Cathie Romo MD MTDD
== END 2016-09-05 14:56 | disposition home or self-care (01) ==
LOC: SUPCPDRO → ED 10:11 → INTOOBSV 14:59 → 3S 14:59
PROVIDERS: ATTEND Internal Medicine

== ENCOUNTER 2018-05-30 10:44 | Inpatient (IN) ==
[2018-05-30 11:41] LABS: URINE SOURCE CLEAN CATCH
--- NOTE | 2018-05-30 11:44 | Diag Imaging Result Doc PS360 ---
EXAM: CHEST-PORTABLE 05/30/2018 HISTORY: SOB TECHNIQUE: AP portable at 1133 COMMENT: There are bilateral pleural effusions. Both effusions are larger than on 05/10/2018. There is opacification of portions of the mid left upper lobe which was not the case previously. There is increased atelectasis in the left base. IMPRESSION: Worsened pleural effusions. Atelectasis and/or pneumonia left upper lobe. Electronically signed by Gus Rosenberg 05/30/2018 11:42 AM
[2018-05-30 11:47] LABS: BILIRUBIN URINE NEGATIVE (NEGATIVE); BLOOD URINE TRACE (NEGATIVE); COLOR YELLOW; GLUCOSE URINE NEGATIVE (NEGATIVE); KETONE URINE NEGATIVE (NEGATIVE); LEUKOCYTES URINE NEGATIVE (NEGATIVE); NITRITE URINE NEGATIVE (NEGATIVE); PROTEIN URINE NEGATIVE (NEGATIVE); TURBIDITY URINE CLEAR (CLEAR); UROBILINOGEN URINE NORMAL (NORMAL)
[2018-05-30 11:48] LABS: ALLEN TEST YES; BE -0.5 mmoll (-3.0-3.0); BLOOD TYPE ARTERIAL; HCO3-(ACT) 24.4 mmoll (20.0-26.0); METHB 0.8 % (0.0-1.5); O2(CT) 17.1 mL/dL (15.0-23.0); PCO2(98.6) 34 mmHg (35-45); PO2(98.6) 59 mmHg (60-100); SAMPLE BLOOD; SAO2 93.2 % (95.0-100.0); THB 13.4 g/dL (11.5-17.4); pH(98.6) 7.44 (7.35-7.45)
[2018-05-30 11:48] LABS: UR EPITHELIAL CELLS <10 /HPF (<10); URINE BACTERIA NEGATIVE /HPF; URINE RBC <10 /HPF (<10); URINE WBC <10 /HPF (<10)
[2018-05-30 11:51] LABS: MODALITY NRB
--- NOTE | 2018-05-30 11:53 | EKG Report ---
Test Performed on : 05/30/2018 10:56:51 AM Test Reason : SOB Blood Pressure : / mmHG Vent. Rate : 114 BPM Atrial Rate : 114 BPM P-R Int : 138 ms QRS Dur : 094 ms QT Int : 382 ms P-R-T Axes : 002 -21 -01 degrees QTc Int : 526 ms Sinus tachycardia. Incomplete right bundle branch block Voltage criteria for left ventricular hypertrophy Nonspecific ST abnormality Prolonged QT Abnormal ECG When compared with ECG of 27-OCT-2017 19:42, ST now depressed in Anterior leads Unconfirmed Result
[2018-05-30 12:24] LABS: PTT 73.7 Seconds (22.3-41.8)
[2018-05-30 12:30] LABS: BASO# 0.05 X1000 (0.0-0.2); BASO% 0.2 % (0.0-0.8); EOS% 1.5 % (0.0-10.0); HEMATOCRIT 43.1 % (42.0-52.0); HEMOGLOBIN 13.2 g/dL (14.0-18.0); IMM GRAN# 0.07 X1000 (0.0-0.04); IMM GRAN% 0.3 % (0.0-0.5); LYMPH# 1.27 X1000 (1.2-3.4); LYMPH% 6.2 % (20.5-51.1); MCH 26.2 PG (27-31); MCHC 30.6 g/dL (33-37); MCV 85.5 FL (81-99); MONO# 1.23 X1000 (0.11-0.59); MONO% 6.1 % (1.7-9.3); MPV 10.6 FL (7.4-10.4); NEUT# 17.41 X1000 (1.4-6.5); NEUT% 85.7 % (42.2-75.2); PLT 308 X1000 (130-400); RBC 5.04 XMIL (4.7-6.1); RDW 14.9 % (11.5-14.5); WBC 20.33 X1000 (4.8-10.8)
[2018-05-30 12:42] LABS: ALB/GLOB RATIO 1.3; ALBUMIN 3.4 g/dL (3.5-5.0); CALCIUM 7.9 mg/dL (8.8-10.2); CREATININE 1.9 mg/dL (0.7-1.2); POTASSIUM 2.8 mmol/L (3.5-5.1); TOTAL BILIRUBIN 0.76 mg/dL (0.20-1.00); TOTAL PROTEIN 6.1 g/dL (6.3-8.3)
[2018-05-30 12:44] LABS: D-DIMER 7.06 ug/mLFEU (0.0-0.52); INR 6.04; PROTIME 57.7 Seconds (11.0-16.0)
[2018-05-30 12:46] LABS: BANDS 10 % (0-1); LYMPHS 2 % (21-51); MONO 8 % (1-9); SEGS 80 % (42-75)
[2018-05-30] MEDS ORDERED: VANCOMYCIN 1 GM/NS 1 GM/250 ML IVPB IV ONE ×2 (12:46→13:37)
[2018-05-30] MEDS ORDERED: ZOSYN 3.375 GM in NS 50 ML IV ONE (12:46)
[2018-05-30] MEDS ORDERED: VITAMIN K 5 MG in NS 50 ML IV ONE (12:48)
[2018-05-30 12:59] LABS: CK INDEX 1.2 (0.0-2.5); CK-MB 4.91 ng/mL (0.0-5.0)
--- NOTE | 2018-05-30 12:59 | PROVIDER DOCUMENTATION ---
This chart was entered by Margarita Scott Scribe, acting as scribe for Shravan Gonzalez MD. HPI-Respiratory General - General Chief Complaint: Shortness of Breath Stated Complaint: N/V COUGHING UP BLOOD Time Seen by Provider: 05/30/18 11:15 Source: patient, family, EMS Allergies/Adverse Reactions: Patient Allergies Allergy/AdvReac Type Severity Reaction Status Date / Time No Known Allergies Allergy Verified 05/30/18 11:13 Home Medications: Home Medication List Medication Instructions Recorded Confirmed Last Taken Type Omeprazole [Prilosec] 20 mg PO QAM 12/09/14 05/10/18 05/10/18 06:00 History Ranitidine [Zantac] 300 mg PO BID 11/03/15 05/10/18 05/10/18 06:00 History Lactobacillus Rhamnosus GG 1 ea PO BID #120 cap 06/05/17 05/10/18 05/10/18 06:00 Rx [Culturelle] Memantine [Namenda] 10 mg PO BID #60 tab 06/05/17 05/10/18 05/10/18 06:00 Rx Zolpidem [Ambien] 5 mg PO QHS #30 tab 06/05/17 05/10/18 05/09/18 22:00 Rx Alprazolam [Xanax] 0.5 mg PO QAM 10/20/17 05/10/18 05/10/18 06:00 History Donepezil [Aricept] 10 mg PO QHS 10/20/17 05/10/18 05/09/18 22:00 History Fludrocortisone [Florinef] 0.1 mg PO QAM 10/20/17 05/10/18 05/10/18 06:00 History Fluoxetine [Prozac] 40 mg PO QAM 10/20/17 05/10/18 05/10/18 06:00 History Hydralazine [Apresoline] 25 mg PO BID 10/20/17 05/10/18 05/10/18 06:00 History Albuterol Sulfate [Proair Hfa] 8.5 gm IH Q4H PRN PRN #1 hfa.aer.ad 10/27/17 05/10/18 05/10/18 06:00 Rx Carvedilol 6.25 mg PO BID 05/10/18 05/10/18 05/10/18 06:00 History Prednisone 1.5 tab PO DAILY 05/10/18 05/10/18 05/10/18 06:00 History Promethazine [Phenergan] 25 mg PO Q6H PRN PRN 05/10/18 05/10/18 Unknown History Tizanidine [Zanaflex] 4 mg PO Q8HR 05/10/18 05/10/18 05/10/18 06:00 History Warfarin [Coumadin] 4 mg PO DAILY 05/10/18 05/10/18 04/26/18 History - History of Present Illness-Resp Nature of Presenting Problem: 62 yowm presents to the ed with c/o sob, cough, n/v. pt sts n/v onset this morning at 0100 and with onset of coughing pt had vomiting. pt sts saw bright red blood in vomit Quality of Pain: reports: cramping Severity in ED: reports: moderate Onset/Duration: reports: this morning (0100) Timing: reports: intermittent Exposure: reports: unknown cause Cough Quality/Degree: reports: moderate, blood streaked sputum Episode Frequency: occasional episodes Current Respiratory Medication Therapy: Initiated see nurses note Modifying Factors: improves with: oxygen, sitting upright. worse with: coughing Associated Symptoms: reports: cough, shortness of breath. denies: chest pain/soreness, dizziness, wheezing Similar Symptoms Previously?: Yes Recently seen or treated by another doctor?: No Review of Systems - Adult - REVIEW OF SYSTEMS - ADULT Constitutional: denies: chills, fever Eyes: reports: no symptoms reported Ears, Nose, Mouth & Throat: reports: no symptoms reported Cardiovascular: denies: chest pain, palpitations Respiratory: reports: see HPI, cough, dyspnea on exertion, hemoptysis, shortness of breath Gastrointestinal: reports: see HPI, nausea, poor appetite, vomiting. denies: diarrhea Genitourinary: reports: no symptoms reported Musculoskeletal: denies: back pain, neck pain Integumentary: reports: no symptoms reported Neurological: reports: no symptoms reported Psychiatric: reports: no symptoms reported Endocrine: reports: no symptoms reported Hematologic/Lymphatic: reports: no symptoms reported Allergic/Immunologic: reports: no symptoms reported All Other Systems: Reviewed and Negative Past History - Adult - PAST MEDICAL HISTORY-ADULT Review of Records: reports: Nursing Assessment Review, Medications Reviewed Major Childhood Illnesses: reports: denies history Cardiovascular: reports: blood clots, HTN Respiratory: reports: pneumonia (BOOP) Gastrointestinal: reports: GERD Genitourinary: reports: kidney stones Musculoskeletal: reports: denies history Neurological: reports: dementia (mild) Psychiatric: reports: anxiety Endocrine/Immune: reports: denies history Other Conditions: reports: denies history - PRIOR SURGERIES/PROCEDURES Surgical/Procedure History: reports: appendectomy, joint replacement - IMMUNIZATION STATUS Childhood Immunizations: See Nurse Assessment Flu Vaccine: See Nurse Assessment - FAMILY HISTORY Family History: reviewed, not pertinent - SOCIAL HISTORY Smoking: quit greater than 1 year Substance Use: denies Living Situation: family Physical Exam-General - PHYSICAL EXAM-ADULT Initial Vital Signs Reviewed: Yes - CONSTITUTIONAL General Appearance: alert, mild distress, obese - EYES Eyes: PERRL/EOMI, pink conjunctivae - HEAD, EARS, NOSE, MOUTH & THROAT HENMT: moist mucous membranes, normal ENT inspection - NECK Neck: full range of motion, normal inspection - RESPIRATORY Respiratory: chest non-tender, respiratory distress, increased rate (36), other (02 sat 76% on RA and on exam pt on nonrebreather and 02 87%) - CARDIOVASCULAR Cardiovascular: normal peripheral pulses, tachycardia (114) - GASTROINTESTINAL (ABDOMEN) Abdominal Exam: normal bowel sounds, soft, tenderness (diffuse tenderness to palpation from n/v) - LYMPHATIC Lymphatic: no adenopathy - MUSCULOSKELETAL Back Exam: normal inspection, no CVA tenderness, no vertebral tenderness Extremity: normal range of motion, normal inspection, no pedal edema, no calf tenderness, normal capillary refill, pelvis stable - SKIN Integumentary: normal turgor, warm/dry - NEUROLOGIC Neurologic: grossly normal, no motor/sensory deficits - PSYCHIATRIC Psych/Mental Status: normal mood/affect, normal thought content, normal thought process, oriented x 3 Progress - PLAN OF CARE/RESULTS Progress/Plan/Lab Results: Vital Signs - 8 hr 05/30/18 11:11 Temperature 99.1 F Pulse Rate 114 H Respiratory Rate 36 H Blood Pressure 161/96 O2 Sat by Pulse Oximetry 76 L Laboratory Results - last 24 hr 05/30/18 05/30/18 05/30/18 11:04 11:04 11:04 WBC 20.33 H RBC 5.04 Hgb 13.2 L Hct 43.1 MCV 85.5 MCH 26.2 L MCHC 30.6 L RDW Std Deviation 14.9 H Plt Count 308 MPV 10.6 H Immature Gran % (Auto) 0.3 Neut % (Auto) 85.7 H Lymph % (Auto) 6.2 L [place] % (Auto) 6.1 Eos % (Auto) 1.5 Baso % (Auto) 0.2 Immature Gran # (Auto) 0.07 H Neut # (Auto) 17.41 H Lymph # (Auto) 1.27 [place] # (Auto) 1.23 H Eos # (Auto) 0.30 Baso # (Auto) 0.05 Segmented Neutrophils 80 H Band Neutrophils 10 H Lymphocytes 2 L Monocytes 8 PT 57.7 H INR 6.04 H* PTT (Actin FS) 73.7 H D-Dimer, Quantitative 7.06 H Specimen Type Sample Site pH pCO2 pO2 HCO3 Base Excess Oxyhemoglobin ABG O2 Sat (Calculated) ABG O2 Saturation ABG Carboxyhemoglobin ABG Methemoglobin [place] Test A-a O2 Difference Total Hemoglobin Lactate Liter Flow Blood Gas Modality FiO2 % Sodium 149 H Potassium 2.8 L Chloride 109 H Carbon Dioxide 22 L Anion Gap 18 BUN 15 Creatinine 1.9 H Estimated GFR/1.73 m2 36 BUN/Creatinine Ratio 8 Glucose 61 L Calculated Osmolality 295 Calcium 7.9 L Total Bilirubin 0.76 AST 22 ALT 12 Alkaline Phosphatase 187 H Creatine Kinase 405 H Troponin T Total Protein 6.1 L Albumin 3.4 L Globulin 2.7 Albumin/Globulin Ratio 1.3 Plasma Lactate Urine Source Urine Color Urine Turbidity Urine pH Ur Specific [place] Urine Protein Ur Glucose (Stick) Ur Ketones (Stick) Urine Blood Urine Nitrite Urine Bilirubin Urobilinogen Dipstick Urine Leukocytes Urine WBC (Auto) Urine RBC (Auto) U Epithel Cells (Auto) Urine Bacteria (Auto) 05/30/18 05/30/18 05/30/18 11:04 11:04 11:21 WBC RBC Hgb Hct MCV MCH MCHC RDW Std Deviation Plt Count MPV Immature Gran % (Auto) Neut % (Auto) Lymph % (Auto) [place] % (Auto) Eos % (Auto) Baso % (Auto) Immature Gran # (Auto) Neut # (Auto) Lymph # (Auto) [place] # (Auto) Eos # (Auto) Baso # (Auto) Segmented Neutrophils Band Neutrophils Lymphocytes Monocytes PT INR PTT (Actin FS) D-Dimer, Quantitative Specimen Type Sample Site pH pCO2 pO2 HCO3 Base Excess Oxyhemoglobin ABG O2 Sat (Calculated) ABG O2 Saturation ABG Carboxyhemoglobin ABG Methemoglobin [place] Test A-a O2 Difference Total Hemoglobin Lactate Liter Flow Blood Gas Modality FiO2 % Sodium Potassium Chloride Carbon Dioxide Anion Gap BUN Creatinine Estimated GFR/1.73 m2 BUN/Creatinine Ratio Glucose Calculated Osmolality Calcium Total Bilirubin AST ALT Alkaline Phosphatase Creatine Kinase Troponin T 0.106 H Total Protein Albumin Globulin Albumin/Globulin Ratio Plasma Lactate 1.5 Urine Source CLEAN CATCH Urine Color YELLOW Urine Turbidity CLEAR Urine pH 5.0 Ur Specific [place] 1.000 Urine Protein NEGATIVE Ur Glucose (Stick) NEGATIVE Ur Ketones (Stick) NEGATIVE Urine Blood TRACE A Urine Nitrite NEGATIVE Urine Bilirubin NEGATIVE Urobilinogen Dipstick NORMAL Urine Leukocytes NEGATIVE Urine WBC (Auto) <10 Urine RBC (Auto) <10 U Epithel Cells (Auto) <10 Urine Bacteria (Auto) NEGATIVE 05/30/18 11:40 WBC RBC Hgb Hct MCV MCH MCHC RDW Std Deviation Plt Count MPV Immature Gran % (Auto) Neut % (Auto) Lymph % (Auto) [place] % (Auto) Eos % (Auto) Baso % (Auto) Immature Gran # (Auto) Neut # (Auto) Lymph # (Auto) [place] # (Auto) Eos # (Auto) Baso # (Auto) Segmented Neutrophils Band Neutrophils Lymphocytes Monocytes PT INR PTT (Actin FS) D-Dimer, Quantitative Specimen Type ARTERIAL Sample Site R RADIAL pH 7.44 pCO2 34 L pO2 59 L HCO3 24.4 Base Excess -0.5 Oxyhemoglobin 91.0 L ABG O2 Sat (Calculated) 17.1 ABG O2 Saturation 93.2 L ABG Carboxyhemoglobin 1.50 ABG Methemoglobin 0.8 [place] Test YES A-a O2 Difference 612.0 Total Hemoglobin 13.4 Lactate 1.30 Liter Flow 15.0 Blood Gas Modality NRB FiO2 % 100.0 Sodium Potassium Chloride Carbon Dioxide Anion Gap BUN Creatinine Estimated GFR/1.73 m2 BUN/Creatinine Ratio Glucose Calculated Osmolality Calcium Total Bilirubin AST ALT Alkaline Phosphatase Creatine Kinase Troponin T Total Protein Albumin Globulin Albumin/Globulin Ratio Plasma Lactate Urine Source Urine Color Urine Turbidity Urine pH Ur Specific [place] Urine Protein Ur Glucose (Stick) Ur Ketones (Stick) Urine Blood Urine Nitrite Urine Bilirubin Urobilinogen Dipstick Urine Leukocytes Urine WBC (Auto) Urine RBC (Auto) U Epithel Cells (Auto) Urine Bacteria (Auto) Orders Category Date Time Status Cardiac Monitoring DIRECTED Care 05/30/18 11:16 Active Nursing- Obtain EKG ONCE Care 05/30/18 11:16 Active CHEST-PORTABLE [RAD] Stat Exams 05/30/18 11:16 Completed ABG [RESP] Routine Lab 05/30/18 11:40 Completed BLOOD CULTURE [BLDCUL] Stat Lab 05/30/18 11:00 Results CBC WITH DIFF [HEME] Stat Lab 05/30/18 11:04 Completed CK PROFILE [SP CHEM] Stat Lab 05/30/18 11:04 Results COMPREHENSIVE METABOLIC PANEL [CHEM] Stat Lab 05/30/18 11:04 Results D-DIMER [COAG] Stat Lab 05/30/18 11:04 Completed LACTATE, PLASMA [CHEM] Lab 05/30/18 11:04 Completed LACTATE, PLASMA [CHEM] Stat Lab 05/30/18 12:46 Uncollected PROTIME WITH INR [COAG] Stat Lab 05/30/18 11:04 Completed PTT [COAG] Stat Lab 05/30/18 11:04 Completed TROPONIN T Stat Lab 05/30/18 11:04 Completed URINALYSIS W/POSS RFLX CULT [URINALYSIS] Stat Lab 05/30/18 11:21 Completed Phytonadione [Vitamin K] 5 mg Med 05/30/18 12:48 Active 0.9% Sodium Chloride Inj [Ns] 50 ml IV NOW Piperacillin/Tazobactam [Zosyn] 3.375 gm Med 05/30/18 12:46 Active 0.9% Sodium Chloride Inj [Ns] 50 ml IV NOW Vancomycin 1 gm/Ns Med 05/30/18 12:46 Active 1 gm in 250 ml IV NOW Oxygen Device Stat Oth 05/30/18 11:16 Active EKG [EKG] Stat Ther 05/30/18 11:16 Draft Result Diagrams: 05/30/18 11:04 05/30/18 11:04 - EKG 1 Time of EKG reading by physician:: 11:04 EKG Read and Signed by:: Shravan Gonzalez EKG Interpretation (*Must complete 3 of following elements*): Abnormal Rate: 114 Rhythm: sinus tachycardia [place]: normal QRS: RBB (incomplete), LVH MD Interval: normal Comments: nonspecific ST abnormality - CONSULTS/PCP/HOSPITALIST Notification #1 *Consult/PCP/Hospitalist*: Gay Time Discussed: 12:50 Reason/Comments: admit, give vit K, consult surgery #2 Consult: Christ Time Discussed: 12:57 Consult Disposition: Admit Departure - Departure Date of Disposition Decision: 05/30/18 Time of Disposition Decision: 11:20 DIAGNOSIS: Pleural effusion, right, Hypoxia, Coagulopathy Leukocytosis Qualifiers: Leukocytosis type: unspecified Qualified Code(s): D72.829 - Elevated white blood cell count, unspecified Disposition: ADMITTED INPATIENT 09 Certified Medical Emergency: Emergent Condition: Fair Referrals and Follow-Ups: Fiorella Alvarez MD [Primary Care Provider] - - Critical Care Note This patient required my direct & personal management of CC.: No Attestation - Physician/ JESSIKA Attestation Patient care was provided by Advanced Practice Provider:: No The physician spent face to face time with patient:: Yes Advanced Practice Provider documentation review:: Supervising physician onsite and consulted in the evaluation and care of this patient. The physician did have a face to face encounter with the patient. This chart was documented by the indicated scribe, (Margarita Sctot Scribe) and accurately reflects the services I performed and decisions made by me, Shravan Gonzalez MD, as attested by the provider's signature.
[2018-05-30] MEDS ORDERED: VITAMIN K 10 MG in NS 50 ML IV ONE ×2 (13:33→13:49)
[2018-05-30] MEDS ORDERED: VANCOMYCIN IV PER PHARMACY MISC SCH (13:34)
[2018-05-30] MEDS ORDERED: PROTONIX IV SCH (13:34)
[2018-05-30] MEDS ORDERED: TYLENOL PO PRN (13:34)
[2018-05-30] MEDS ORDERED: DUONEB (A & A) INH PRN (13:34)
[2018-05-30] MEDS ORDERED: LASIX IV ONE (13:51)
[2018-05-30] MEDS ORDERED: MAGNESIUM SULFATE 2 GM/S.W.I. 2 GM/50 ML IVPB IV ONE (14:10)
[2018-05-30] MEDS ORDERED: POTASSIUM CHLORIDE 20 MEQ/SWI 20 MEQ/100 ML IVPB IV ONE (14:10)
--- NOTE | 2018-05-30 14:39 | Diag Imaging Result Doc PS360 ---
EXAM: CT THORAX W/O CONTRAST 05/30/2018 HISTORY: pl effussion, pna, sob TECHNIQUE: This exam was performed using automated exposure control, adjustment of mA or kV according to patient size, and/or use of iterative reconstruction technique. COMMENT: The current examination is compared to the previous study of 10/20/2017 and the PET/CT of 05/22/2018. There are patchy groundglass opacities present in both upper lobes particularly the left upper lobe. There is compressive atelectasis in the right lower lobe and middle lobe and to some extent in the upper lobe due to a loculated pleural fluid collection. There is consolidation of the left lower lobe with air bronchograms, this was present on the 2018 examination but has apparently resolved by the study of 05/22/2018. There has been some slight improvement in compressive atelectasis in the lingula since the previous study. 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 There is some fluid in the distal esophagus but not to the extent seen on the previous study. The mediastinum is otherwise unchanged in appearance. There appear to be some pleural implants or sediment posteriorly on the right. This may have been present at the time of the previous PET/CT of 05/22/2018 although the quality of the images is somewhat suboptimal. These could be blood clots. This was not the case at the time the previous study of 10/20/2017. The regional skeleton appears to be stable IMPRESSION: Loculated right effusion with possible pleural implants. Secondary compressive atelectasis. Recurrent atelectasis or pneumonia in the left lower lobe. Patchy pneumonia in the left upper lobe. Electronically signed by Gus Rosenberg 05/30/2018 2:37 PM
[2018-05-30] MEDS ORDERED: VANCOMYCIN 2 GM in NS 500 ML IV ONE (15:00)
[2018-05-30] MEDS: MAXIPIME 1 GM in NS 50 ML IV SCH (15:15)
[2018-05-30] MEDS: DUONEB (A & A) INH SCH ×3 (15:26→23:16)
[2018-05-30 17:42] LABS: CK INDEX 0.8 (0.0-2.5); CK-MB 6.09 ng/mL (0.0-5.0)
--- NOTE | 2018-05-30 19:50 | GENERAL SURGERY CONSULTATION ---
DATE: 05/30/2018 HISTORY OF PRESENT ILLNESS: This is a 62-year-old gentleman with a history of dementia and hypercoagulable disorder on Coumadin for anticoagulation. He has had a recurrent effusion over the last several months, been followed by Dr. Garcia. She had a thoracentesis that drained a liter of bloody fluid a week or so ago. The cytology was negative. He has had CT scans that is concerning for a pleural-based mass. He presents now with worsening shortness of breath. He has been on home O2. MEDICAL HISTORY: Dementia. He has had complications associated with this and fundoplication requiring partial gastrectomy and open operation in the past, history of smoking, quit 3 to 4 years ago. He is here with his attentive . He does have dementia. His memory is somewhat cloudy at times. He takes numerous medications. SOCIAL HISTORY: No current alcohol. Attentive . FAMILY HISTORY: Reviewed and noncontributory. REVIEW OF SYSTEMS: Ten-point negative, otherwise mentioned in HPI. SURGICAL HISTORY: Negative for Thoracic Procedures PHYSICAL EXAMINATION: Vital signs: He is afebrile. Pulse in the low 100s. Blood pressure 127/70, oxygen saturation 95% on BiPAP. He seems comfortable. Saturations were in the 70s and 80s when he arrived. General: He is alert. He seems in no acute distress. HEENT: No cervical mass. Cardiovascular: Normal rate. Pulmonary: Equal chest rise. No accessory muscles. He is on BiPAP. Abdomen: Soft, nontender. Integument: Warm and dry. Psychiatric: Appropriate affect. Neurologic: Does have some generalized weakness. Lymphatic: No cervical adenopathy. Peripheral vascular: Lower extremity edema. LABORATORY DATA: Last white count is 20, hematocrit is 43, platelets 308,000. INR 6.04. ABG 7.44, 34, 59 with a base excess of 24.4. Creatinine is 1.9, potassium is low at 2.8, sodium is 149. Troponins are 0.111. BNP is elevated. Lactate is 1.6. I reviewed a CT scan of his chest that shows loculated effusion with pleural implants with atelectasis, possibly some pneumonia in the left lower lobe and left upper lobe. ASSESSMENT AND PLAN: This is a 59-year-old gentleman with right-sided effusion and pleural implants. He also has some nonspecific findings in the left. It is concerning obviously for malignant effusion. His thoracentesis cytology was negative, but this can be falsely negative. Given his hemodynamic stability, he is on BiPAP, is symptomatic and his supratherapeutic INR, I have recommended correction of this tonight and plans for a bronchoscopy with video-assisted thoracoscopy drainage and pleural biopsy tomorrow. I have discussed risk of bleeding, infection, nondiagnostic specimen, conversion to open with the . She understands and consents. We discussed that this is possibly a malignancy despite study showing negative cytology at this point. He is being treated for pneumonia. I agree with this. We will optimize electrolytes. Will make him n.p.o. now and plans for surgery tomorrow. cc: Fidelina Jean MD MTDD
--- NOTE | 2018-05-30 21:05 | ECHO REPORT ---
ORDER DATE: 05/30/2018 INDICATION: Shortness of breath, possible pericardial effusion. FINDINGS: 1. The right atrium appears normal in size. 2. Trace tricuspid regurgitation. RV systolic pressure of 42. 3. Normal RV size and systolic function. 4. No significant pulmonic insufficiency. 5. Normal left atrial size with a dimension of 3.6 cm and a volume index of 25. 6. No mitral valve prolapse. No significant mitral regurgitation. 7. Normal LV size and diastolic dimension of 4.1 cm. Mild left ventricular hypertrophy with a posterior and interventricular septal wall thickness of 0.9 and 1.2 cm respectively. Normal LV systolic function. Calculated EF of 63% with normal wall motion. 8. The aortic valve opens well. No clear evidence of stenosis or insufficiency. 9. The aorta appears normal in visualized segments. 10.I do not see any clear evidence of pericardial effusion on this study. On some views, there is an anterior echo-free space which appears most consistent with pericardial fat pad. The patient is tachycardic into the 100s and 110s during the course of the study. cc: Harjit Grey MD
--- NOTE | 2018-05-30 21:25 | PULMONOLOGY CONSULTATION ---
DATE: 05/30/2018 REASON FOR CONSULTATION: Respiratory failure, pleural effusion, hypercoagulable state. HISTORY OF PRESENT ILLNESS: Mr. Alonzo is a 62-year-old white male who was evaluated by this practitioner on 10/20/2018, when he presented with aspiration pneumonia and respiratory failure following a cervical spine surgery. The patient did improve and was discharged from that hospital stay. The patient had a CT scan during that visit which revealed bibasilar infiltrates consistent with pneumonia, along with a fluid-filled esophagus. The patient has chronic dementia, chronic kidney disease, with history of deep vein thrombosis. He is followed in the Oncology Clinic by Dr. Garcia, who manages his Coumadin. The patient developed some right-sided chest pain along with increasing pleural effusion. He has had several INRs greater than 6. He went for a thoracentesis on 05/10/2018, and 1 L of grossly bloody fluid was aspirated by Radiology. Cytology report was negative. The patient's reports he underwent a PET scan which reveals increased activity in the lung lining. He began coughing up blood earlier today along with increasing shortness of breath, and he was referred to the emergency room by Dr. Garcia PAST MEDICAL HISTORY: Problem list: 1. Extensive tobacco history, but none for the last 3 or 4 years, by patient's report. My earlier consultation indicated 6 months. 2. Chronic anticoagulation for deep vein thrombosis. 3. Dementia. 4. IVC filter placement. 5. Status post gastric resection, due to complications of fundoplication. 6. Cervical spine surgery. 7. Status post cholecystectomy. 8. Dementia. 9. Hypertension. 10. History of deep vein thrombosis. 11. Chronic kidney disease. 12. Status post appendectomy. 13. Status post cholecystectomy. 14. Status post TURP. 15. Status post right knee arthroscopy. 16. Coronary artery disease with prior stent placement. 17. History of dysautonomia. 18. History of copper deficiency. SOCIAL HISTORY: Prior tobacco use. No current tobacco or alcohol use. 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 He has difficulty recalling calling whether he may have been exposed to asbestos. FAMILY HISTORY: Noncontributory to current presentation. REVIEW OF SYSTEMS: Notable for shortness of breath, right-sided chest wall pain, hemoptysis. PHYSICAL EXAMINATION: General: A well developed, well nourished male on BiPAP ventilation, who appears older than his stated age. Vital Signs: Maximum temperature in the emergency room was 100.2 degrees, blood pressure 108/71, heart rate 102, respiratory rate 20, oxygen saturation 97%. HEENT: Pupils are equal and reactive. Oropharynx is clear, but limited evaluation with BiPAP in place. Neck: Supple. Chest: Reveals diminished breath sounds in the right chest. Cardiac: S1, S2. Abdomen: Soft. Extremities: Without edema. LABORATORIES: INR at 11:00 this morning was 6.04. White blood count 20,000, hemoglobin 13.2, platelet count 308,000. Sodium 140, potassium 4.5, chloride 104, bicarbonate 25, BUN 30, creatinine 1.6. Arterial blood gas on non-rebreather reveals pH of 7.44, pCO2 of 34, pO2 of 59. IMPRESSION: A 62-year-old with: 1. Extensive tobacco history. 2. Bloody effusion/hemothorax. 3. Probable tumor implants on the chest wall. 4. Acute hypoxemic respiratory failure. 5. Dementia. 6. Possible pneumonia. 7. Iatrogenic coagulopathy. 8. Chronic renal insufficiency. 9. The patient also has a history of deep vein thrombosis. RECOMMENDATIONS: 1. Agree with vitamin K today. If he does not correct, would recommend fresh frozen plasma tomorrow morning. 2. I agree with plans for bronchoscopy with thoracoscopy tomorrow. 3. Anticipate the need for postsurgical ventilation. 4. Correct anticoagulation is you are doing. 5. Continue antibiotics, given low-grade fever and leukocytosis. 6. Overall prognosis is guarded to poor, given high probability of malignancy. cc: Fede Del Valle MD
[2018-05-31 01:29] LABS: CK INDEX 0.6 (0.0-2.5); CK-MB 5.38 ng/mL (0.0-5.0)
[2018-05-31] MEDS: MAXIPIME 1 GM in NS 50 ML IV SCH ×2 (02:00→15:00)
[2018-05-31] MEDS: DUONEB (A & A) INH SCH ×6 (03:30→23:30)
--- NOTE | 2018-05-31 03:58 | HISTORY AND PHYSICAL ---
PRIMARY CARE PROVIDER: Dr. Cathie Wray. ONCOLOGIST: Dr. Garcia. CHIEF COMPLAINT: Shortness of breath since 1 a.m., as well as vomiting blood since that time. HISTORY OF PRESENT ILLNESS: Mr. Alonzo is a 62-year-old, male known to our service with a history of orthostatic hypotension, recurrent syncope, dysautonomia, on Florinef and prednisone, as well as a multitude of other medical issues. He has been working closely with Dr. Garcia for masses to the right side of his lung, in between the lungs in the lining, per the . They stated he was started on home O2 two weeks ago. Dr. Garcia was going to put him in the hospital this coming Monday to have his pleural effusions drained. However, his blood, per them, has been too thin. He went ahead and came to the ED for worsening shortness of breath and vomiting blood. He was found to be supratheraputic with an INR of 6. Chest x- ray showed worsened pleural effusions, atelectasis, and/or pneumonia to the left upper lobe. EKG showed sinus tachycardia with an incomplete bundle branch block, at 114 beats per minute. He was found to be hypoxic and placed on a nonrebreather. He was initiated on broad-spectrum antibiotics for aspiration pneumonia. We will give him one dose of Lasix, check a CT of his chest, IV vitamin K, and consult Dr. Garcia, general surgery, and pulmonology, and admit him to the ICU for further treatment and evaluation. PAST MEDICAL HISTORY: 1. Cervical spine stenosis with subsequent lower extremity weakness, status post cervical spine surgery. Patient gets around in a wheelchair. 2. Orthostatic hypotension, dysautonomia, on prednisone and Florinef. 3. Hypertension. 4. Dementia. 5. Chronic pain. 6. History of PE and DVT, on Coumadin, status post IVC filter. 7. Coronary artery disease. 8. Arthritis. 9. Copper deficiency. 10. GERD. PAST SURGICAL HISTORY: 1. Appendectomy. 2. Cholecystectomy. 3. Esophagus revision. 4. Gastrectomy secondary to complications from hiatal hernia. 5. TURP. 6. Right knee arthroplasty. 7. IVC filter. 8. Coronary stent. 9. Cervical fusion. 10. Cervical spine procedure. SOCIAL HISTORY: He is . He lives at home with his . He uses a wheelchair. He has home health with comfort care. No tobacco, alcohol, or illicit drug use. FAMILY HISTORY: Malignancy, coronary artery disease, sudden cardiac . HOME MEDICATIONS: Have not been reconciled. ALLERGIES: No known drug allergies. REVIEW OF SYSTEMS: A 14 point review of systems was completely negative except for those mentioned in the HPI. PHYSICAL EXAMINATION: VITAL SIGNS: Temperature was 99.1 degrees, heart rate 109, respirations 26, blood pressure 140/77, O2 was 90% on a nonrebreather. GENERAL: Mr. Alonzo is a chronically ill-appearing, 62-year-old, male who is lying on the hospital bed in no acute distress. HEENT: Atraumatic, normocephalic. PERRL. He does have a new scar from a laceration to his forehead a few weeks ago where he fell out his wheelchair. He did not seek treatment for that. NECK: Supple. Trachea midline. CARDIOVASCULAR: S1 and S2 are appreciated. No murmurs, gallops, or rubs noted. PULMONARY: Diminished at the bases, with scattered crackles. GI: Soft, nontender, nondistended. Positive bowel sounds. EXTREMITIES: Maybe some trace edema. Bilateral pedal pulses are bounding bilaterally. No signs of clubbing or cyanosis. DIAGNOSTIC DATA: Chest x-ray, worsening pleural effusions, atelectasis or pneumonia to the left upper lobe. Pending CT of the chest. LABORATORY DATA: White count 20, hemoglobin and hematocrit 13 and 43, platelet count is 308,000. PT 57, INR 6.0, PTT 73. D-dimer is 7.06. Blood gas, pH of 7.44, pCO2 of 34, PO2 of 59, base excess -0.5, O2 saturation was 93% on a nonrebreather. Chemistry: Sodium 149, potassium 2.8, BUN 15, creatinine 1.9, blood glucose is 61, magnesium 1.5. Alkaline phosphatase 187. CK 405, CK-MB 491, troponin 0.106. Plasma lactate 1.5. Urinalysis is negative. ASSESSMENT AND PLAN: 1. Supratheraputic INR, on Coumadin. INR of 6. The patient will be given 10 of intravenous vitamin K. We will follow his PT and INR daily. The patient is on Coumadin for a history of deep venous thrombosis and pulmonary embolism. He does have an inferior vena cava filter in place. We will consult his survey analyst, Dr. Garcia. 2. Right lung masses for which the patient is followed by Dr. Garcia. 3. Bilateral pleural effusions. Aware. Per patient and report, he was going to be put in the hospital on Monday to drain his pleural effusions after they thickened up his blood. 4. Acute respiratory failure, hypoxemic, upon arrival in the 70s. He is now on a nonrebreather, saturating in the low 90s. We will consult pulmonology. We will give him one dose of Lasix. Check a chest CT. 5. Probable left upper lobe aspiration pneumonia. We will continue with broad- spectrum antibiotics with vancomycin and cefepime, bronchodilators, aggressive pulmonary toilet. 6. Acute kidney injury on probable kidney disease. We will continue to watch his kidney function closely. He does appear to be close to his baseline. We will consult nephrology if needed. 7. Hypokalemia. We will replenish his electrolytes, place him on electrolyte protocol. 8. Elevated troponin. It is not positive. We will continue to trend. We will check an echocardiogram. Consult cardiology. I believe, at some point, Dr. Garcia was working with Dr. Yee with the patient. We will go ahead and check a proBNP, and give one dose of Lasix. 9. Cervical spine stenosis with subsequent lower extremity weakness, status post cervical spine surgery. Patient uses a wheelchair to get around. 10. Orthostatic hypotension, dysautonomia, on prednisone and Florinef. 11. Hypertension. 12. Dementia with some reported aggressive behaviors on his last admission. 13. Chronic pain. 14. History of pulmonary embolism and deep venous thrombosis, on Coumadin, status post inferior vena cava filter. Coumadin will be held. Check daily PT and INRs. 15. Coronary artery disease, status post stenting years ago. 16. Arthritis. 17. Copper deficiency. 18. Gastroesophageal reflux disease. We will continue a proton pump inhibitor. 19. Further recommendation to follow physician evaluation, laboratory and diagnostic data. Dictated by JOSH Snow for Aldair Larsen MD Addendum: Patient seen and examined by myself. Agree with JOSH note. It reflects my assessment and plan. Patient is being admitted to hospital for acute respiratory failure. Patient has history of right lung mass and he was about to have a surgery as outpatient. Considering he came for SOB and hemoptysis will consult General Surgery and Pulmonary. His primary oncologist Dr. Redmond will be consulted. Will monitor patient closely in ICU. cc: MD Jefferson Romo MD James E. Boyle, MD Dr. Harney MTDD
[2018-05-31] MEDS ORDERED: ZOFRAN IV PRN (04:55)
[2018-05-31] MEDS: MORPHINE IV PRN (05:05)
[2018-05-31 05:50] LABS: BASO# 0.09 X1000 (0.0-0.2); BASO% 0.5 % (0.0-0.8); EOS# 0.32 X1000 (0.0-0.7); EOS% 1.7 % (0.0-10.0); HEMATOCRIT 43.1 % (42.0-52.0); HEMOGLOBIN 12.9 g/dL (14.0-18.0); IMM GRAN# 0.05 X1000 (0.0-0.04); IMM GRAN% 0.3 % (0.0-0.5); LYMPH# 0.88 X1000 (1.2-3.4); LYMPH% 4.7 % (20.5-51.1); MCHC 29.9 g/dL (33-37); MCV 86.7 FL (81-99); MONO# 1.02 X1000 (0.11-0.59); MONO% 5.5 % (1.7-9.3); MPV 10.4 FL (7.4-10.4); NEUT# 16.19 X1000 (1.4-6.5); NEUT% 87.3 % (42.2-75.2); PLT 294 X1000 (130-400); RBC 4.97 XMIL (4.7-6.1); RDW 15.2 % (11.5-14.5); WBC 18.55 X1000 (4.8-10.8)
[2018-05-31 05:56] LABS: INR 1.73; PROTIME 21.5 Seconds (11.0-16.0)
[2018-05-31] MEDS ORDERED: VANCOMYCIN 1.6 GM in NS 250 ML IV SCH (06:00)
[2018-05-31 06:04] LABS: URINE SOURCE CLEAN CATCH
[2018-05-31 06:14] LABS: BILIRUBIN URINE NEGATIVE (NEGATIVE); BLOOD URINE SMALL (NEGATIVE); COLOR YELLOW; GLUCOSE URINE NEGATIVE (NEGATIVE); KETONE URINE 20 mg/dL (NEGATIVE); LEUKOCYTES URINE NEGATIVE (NEGATIVE); NITRITE URINE NEGATIVE (NEGATIVE); PROTEIN URINE 30 mg/dL (NEGATIVE); SP GRAVITY URINE 1.009; TURBIDITY URINE HAZY (CLEAR); UROBILINOGEN URINE NORMAL (NORMAL)
[2018-05-31 06:16] LABS: UR EPITHELIAL CELLS <10 /HPF (<10); URINE BACTERIA NEGATIVE /HPF; URINE RBC <10 /HPF (<10); URINE WBC <10 /HPF (<10)
[2018-05-31 06:20] LABS: ALB/GLOB RATIO 1.1; ALBUMIN 3.3 g/dL (3.5-5.0); CALCIUM 7.9 mg/dL (8.8-10.2); CREATININE 2.5 mg/dL (0.7-1.2); POTASSIUM 3.9 mmol/L (3.5-5.1); TOTAL BILIRUBIN 1.2 mg/dL (0.20-1.00); TOTAL PROTEIN 6.2 g/dL (6.3-8.3)
[2018-05-31 06:32] LABS: EOS 1 % (1-10); LYMPHS 5 % (21-51); MONO 6 % (1-9); SEGS 88 % (42-75)
[2018-05-31 06:59] LABS: CK INDEX 0.6 (0.0-2.5); CK-MB 5.23 ng/mL (0.0-5.0)
--- NOTE | 2018-05-31 07:15 | Diag Imaging Result Doc PS360 ---
EXAM: CHEST-PORTABLE 05/31/2018 HISTORY: Pneumonia TECHNIQUE: AP portable at 0236 hours COMMENT: There is a large right pleural effusion and a smaller left effusion. The lungs are slightly better expanded than on 05/30/2018. There is interstitial opacity bilaterally consistent with pulmonary edema. There is subsegmental atelectasis in the left upper lobe. IMPRESSION: Pulmonary edema and/or pneumonia with atelectatic changes as described. Large right pleural effusion and smaller left effusion. Electronically signed by Gus Rosenberg 05/31/2018 7:13 AM
[2018-05-31] MEDS ORDERED: FLORINEF PO SCH (09:00)
[2018-05-31] MEDS ORDERED: SENSORCAINE-MPF 0.5%/EPI 1:200,000 ONE (09:36)
--- NOTE | 2018-05-31 09:47 | PROGRESS NOTE ---
DATE: 05/31/2018 INTERVAL HISTORY: Mr. Alonzo was admitted for acute hypoxic respiratory failure and has been on BiPAP since then. He did not have any acute overnight events. SUBJECTIVE: He is complaining of right-sided chest pain. I discussed with him about his chest CT findings of loculated right-sided pleural effusion, lung masses, and pneumonia. I answered all of his questions. His INR has come down after vitamin K that he had received yesterday, and he would likely go for bronchoscopy procedure today. Currently, he denies any more vomiting episodes since he has been in the hospital. Previously, he did have hematemesis and hemoptysis on presentation. OBJECTIVE: Vital Signs: Temperature of 100.1 degrees, tachycardic with heart rate of 105, respiratory rate of 28, blood pressure 140/80, and saturating 93% on BiPAP. General: Not in any acute distress. HEENT: Oral cavity is dry and is on BiPAP. Bilateral pupils equal reacting to light. Lungs: Decreased air entry in left inframammary region with inspiratory crackles. No air entry in right infra inframammary region. No wheezes or rhonchi. Supra mammary region has adequate air entry with bronchovesicular breath sounds. Heart: S1, S2 normal. Regular. Tachycardic. No murmur, rub, or gallop. Abdomen: Soft, nontender. Extremities: No lower extremity edema. Neurologic: He is alert. He is oriented and follows simple commands. He does have bilateral sensory and motor loss below knee level. His knee jerks are 2+ bilaterally with power 0 bilaterally. Input and output suggest he is -900 mL so far. LABORATORY: Labs are suggestive of persistent leukocytosis. Normal hemoglobin and hematocrit. His INR has decreased to 1.7. He continues to have hypernatremia. His hyperchloremia is decreasing. His hypokalemia has resolved. He does have acute kidney injury on what appears to be chronic kidney disease stage 3. He continues to have mild transaminitis, and elevated alkaline phosphatase levels. Blood cultures have not shown any growth to date. IMAGING: Chest x-ray performed today suggests pulmonary edema, pneumonia, large right-sided pleural effusion and small left-sided effusion. ASSESSMENT AND PLAN: 1. Acute hypoxic respiratory failure and sepsis due to bilateral lower lobe pneumonia, right- sided loculated pleural effusion with suspected lung mass. Follow up blood culture results. Urine streptococcal and Legionella antigen; oxygenation through BiPAP with close monitoring of her respiratory status. Continue intravenous vancomycin and intravenous cefepime with close monitoring of BMP and pharmacy dosing for vancomycin. The patient would eventually require bronchoscopy, thoracenteses or chest tube/VATS depending on his course. Pulmonology on board. Hematology/Oncology on board as well for suspected lung mass. 2. Acute kidney injury on chronic kidney disease stage 3. I will continue to monitor his BMP on a daily basis, and continue Albarado catheter for close input and output monitoring. 3. History of DVT and PE on home Coumadin, and supratherapeutic INR as well as history of right- sided hemo thorax, status post thoracentesis on 05/10/2018. He is status post intravenous vitamin K with appropriate decrease in INR. He has also previously had IVC filter. I will continue to hold warfarin, and will resume in future according to his clinical course. 4. History of orthostatic hypotension leading to multiple syncope. Continue home Florinef. I will add home prednisone once the medication is reconciled since it was not listed in the last discharge summary. 5. Hypokalemia being repleted. DISPOSITION: The patient's condition remains critical. More than 30 minutes of critical care time was spent in taking care of this patient. I answered all of his questions. Other issues: He does have baseline dementia and he is listed to be taking medications for that. He has been requiring oxygen routinely since last few weeks. He is wheelchair bound because of cervical spine surgery in the past. I will keep the patient's family informed about his course. cc: MD JAMAAL Cárdenas
[2018-05-31] MEDS ORDERED: XYLOCAINE-MPF 2% ONE (09:57)
[2018-05-31] MEDS ORDERED: QUELICIN (DOSE) ONE (09:57)
[2018-05-31] MEDS ORDERED: AMIDATE ONE (10:11)
[2018-05-31] MEDS ORDERED: ZEMURON ONE ×2 (10:11→10:24)
[2018-05-31] MEDS ORDERED: DIPRIVAN 1% 1,000 MG/100 ML BOTTLE ONE (11:53)
[2018-05-31] MEDS: DIPRIVAN 1% 1,000 MG/100 ML BOTTLE IV SCH ×4 (11:59→22:11)
[2018-05-31] MEDS: PROTONIX IV SCH ×2 (12:00→20:10)
--- NOTE | 2018-05-31 13:31 | Diag Imaging Result Doc PS360 ---
EXAM: CHEST-PORTABLE 05/31/2018 HISTORY: Post surgery TECHNIQUE: AP portable at 1304 COMMENT: There is an endotracheal tube with its tip at thoracic inlet. There is a pneumothorax on the right following placement of a chest tube which has apparently evacuated the large pleural effusion which is demonstrated on the previous study of this date. The lungs are generally better expanded although there is still some patchy alveolar and interstitial opacity consistent with pulmonary edema. There is still some atelectasis present in the right middle and lower lobes. IMPRESSION: Evacuation of right pleural fluid collection with residual pneumothorax. Electronically signed by Gus Rosenberg 05/31/2018 1:29 PM
[2018-05-31 16:02] LABS: ALLEN TEST YES; BLOOD TYPE ARTERIAL; METHB 1.1 % (0.0-1.5); O2(CT) 15.4 mL/dL (15.0-23.0); O2HB 92.7 % (95.0-99.0); PCO2(98.6) 45 mmHg (35-45); PO2(98.6) 66 mmHg (60-100); SAMPLE BLOOD; SAO2 95.1 % (95.0-100.0); SRATE 14 BPM; THB 11.8 g/dL (11.5-17.4); TVOL 500 mL; pH(98.6) 7.35 (7.35-7.45)
[2018-05-31 16:03] LABS: MODALITY VENTILATOR
--- NOTE | 2018-05-31 17:58 | OPERATIVE NOTE ---
PROCEDURE DATE: 05/31/2018 PREOPERATIVE DIAGNOSIS: Recurrent right effusion with pleural mass. POSTOPERATIVE DIAGNOSIS: Recurrent right effusion with pleural mass. PROCEDURES PERFORMED: 1. Video-assisted thoracoscopic drainage of right pleural effusion with pleural biopsies. 2. Bronchoscopy. ANESTHESIA: General. INDICATION: This is a 62-year-old gentleman who has had recurrent right-sided effusion. He was supratherapeutic with INR related to Coumadin therapy which he is on chronically. He is also has a strong smoking history and dementia. OPERATIVE FINDINGS: 1. Bronchoscopy showed no endobronchial lesions in the trachea, right mainstem, right upper bronchus intermedius, or right middle or right lower lobes. The left mainstem again was normal. The lingular branches and upper and lower lobe branches were all normal. There were no significant secretions. 2. There was a greater than 2 L of sanguineous-appearing fluid in the right chest. There was some pleural plaque noted along the diaphragm and lower right hemithorax. Biopsies were taken. There was no obvious neoplastic process. OPERATIVE NOTE: Risks, benefits, and alternatives were discussed with the patient, and he consented to the procedure. He was seen preoperatively and surgical site was confirmed and marked. He was taken to the operating room and placed in supine position. General anesthesia was induced. A single-lumen endotracheal tube was placed by Anesthesia. After time-out, bronchoscopy was performed with the above findings. No specimens were taken. After this, we converted the single-lumen tube to a double-lumen tube, isolating the right lung. He was then placed in left lateral decubitus position. All bony prominences were padded and an axillary roll was placed. His right chest was prepped with chlorhexidine solution and draped in the usual fashion. After time-out, we made an incision off the tip of the scapula and placed a VATS trocar under direct placement. We evacuated a large pleural effusion, collecting this and sending it for cytology. We then placed another 5 mm VATS trocar under direct visualization. Using a laparoscopic biopsy forceps, we took numerous biopsies and noted hemostasis at this location. Then through another stab incision, we placed a 32-Polish chest tube over the diaphragm posterior and apically. We confirmed that there was no kinking an that this was in good position. We then inflated the lungs. There was good inflation of the middle and upper lobes. The lower lobe did remain somewhat atelectatic, but it improved under direct visualization. We removed our trocars and noted hemostasis. We closed the muscle fascia in 2 layers with a running 3-0 Vicryl suture. Skin was closed with 4-0 Monocryl and Dermabond was applied. His chest tube was placed to Pleur-evac device. He was taken to the ICU intubated as planned preoperatively for continued management. cc: Fidelina Jean MD
--- NOTE | 2018-05-31 18:44 | PULMONOLOGY PROGRESS NOTE ---
DATE: 05/31/2018 SUBJECTIVE: The patient has returned from the operating room. Chest tube is in position. OBJECTIVE: He is arousable. He will follow commands. He currently is requiring 60% FIO2 to maintain saturations greater than 90%. HEENT: Pupils are equal and reactive. Oropharynx is clear. Neck is supple. Chest reveals good air entry bilaterally. Cardiac exam: S1, S2. Abdomen is soft. Extremities with trace edema. DIAGNOSTIC DATA: Chest x-ray following procedure reveals chest tube in the right hemithorax. Pleural fluid has been evacuated, but the left middle lobe and left lower lobe have not completely re-expanded. LABORATORY DATA: White blood count this morning 18.55, hemoglobin 12.9, platelet count 294,000. IMPRESSION: A 62-year-old with: 1. Bloody pleural effusion. 2. Status post thoracostomy and chest tube placement for abnormal pleural surface. Biopsies pending. 3. Acute hypoxemic respiratory failure. 4. Pneumonia. 5. Dementia. 6. Chronic renal insufficiency. DISCUSSION: A 62-year-old with problems outlined above. His oxygen requirements remain elevated, but hopefully will improve overnight; however, sometimes with re-expansion there is a lung injury. PLAN: 1. Collect sputum for culture and sensitivity, given radiographic findings in the left lung worrisome for pneumonia. 2. Continue ventilatory support with sedation as needed. 3. Daily weaning trial. 4. Routine gastric acid suppression. 5. Routine bronchial hygiene. 6. Anticipate the need for some form of anticoagulation. Time spent in critical care management 30-plus minutes. cc: Fede De lValle MD
[2018-05-31] MEDS: SODIUM CHLORIDE 0.9% INJ SCH (20:10)
[2018-06-01] MEDS: DIPRIVAN 1% 1,000 MG/100 ML BOTTLE IV SCH ×2 (01:32→05:54)
[2018-06-01] MEDS: MAXIPIME 1 GM in NS 50 ML IV SCH ×2 (01:54→14:59)
[2018-06-01] MEDS: MORPHINE IV PRN ×4 (03:07→19:43)
[2018-06-01] MEDS: DUONEB (A & A) INH SCH ×6 (03:47→23:30)
[2018-06-01 05:19] LABS: ALLEN TEST YES; BLOOD TYPE ARTERIAL; HCO3-(ACT) 22.6 mmoll (20.0-26.0); METHB 0.6 % (0.0-1.5); PCO2(98.6) 38 mmHg (35-45); PO2(98.6) 140 mmHg (60-100); SAMPLE BLOOD; SAO2 99.4 % (95.0-100.0); SRATE 14 BPM; THB 10.8 g/dL (11.5-17.4); TVOL 500 mL; pH(98.6) 7.37 (7.35-7.45)
[2018-06-01 05:21] LABS: MODALITY VENTILATOR
[2018-06-01 05:58] LABS: BASO# 0.04 X1000 (0.0-0.2); BASO% 0.2 % (0.0-0.8); EOS% 2.8 % (0.0-10.0); HEMATOCRIT 39.7 % (42.0-52.0); HEMOGLOBIN 11.9 g/dL (14.0-18.0); IMM GRAN# 0.04 X1000 (0.0-0.04); IMM GRAN% 0.2 % (0.0-0.5); LYMPH% 3.9 % (20.5-51.1); MCH 26.7 PG (27-31); MCV 89.2 FL (81-99); MONO# 0.97 X1000 (0.11-0.59); MONO% 5.5 % (1.7-9.3); NEUT# 15.49 X1000 (1.4-6.5); NEUT% 87.4 % (42.2-75.2); PLT 249 X1000 (130-400); RBC 4.45 XMIL (4.7-6.1); RDW 15.5 % (11.5-14.5); WBC 17.74 X1000 (4.8-10.8)
[2018-06-01 06:01] LABS: INR 1.38
[2018-06-01 06:20] LABS: CALCIUM 8.1 mg/dL (8.8-10.2); CREATININE 2.3 mg/dL (0.7-1.2); MAGNESIUM 2.1 mg/dL (1.5-2.7); PHOSPHORUS 3.3 mg/dL (2.7-4.5); POTASSIUM 3.3 mmol/L (3.5-5.1)
[2018-06-01] MEDS ORDERED: POTASSIUM CHLORIDE 20 MEQ/SWI 20 MEQ/100 ML IVPB IV ONE (07:15)
--- NOTE | 2018-06-01 07:34 | Diag Imaging Result Doc PS360 ---
CHEST-PORTABLE - 06/01/2018 INDICATION: Pneumonia COMPARISON: 05/31/2018 FINDINGS: Stable right basilar chest tube. There is been significant increase in the subcutaneous gas on the right. There is increase in the a small right pleural effusion. There is also a small pneumothorax here similar to prior. There is continued improvement in the hazy infiltrates or opacities throughout the lungs more pronounced on the left side. Heart size is somewhat enlarged and stable. IMPRESSION: Increase in the fluid portion of the hydropneumothorax on the right side. Improved background interstitial diffuse infiltrates. Electronically signed by Chet Hammer 06/01/2018 7:32 AM
[2018-06-01] MEDS ORDERED: SOLU-MEDROL IV ONE (08:57)
[2018-06-01] MEDS ORDERED: LR 1,000 ML IV SCH (09:00)
[2018-06-01] MEDS: FLORINEF PO SCH (09:15)
[2018-06-01] MEDS: SODIUM CHLORIDE 0.9% INJ SCH ×2 (09:19→19:43)
[2018-06-01] MEDS: PROTONIX IV SCH ×2 (09:19→19:43)
[2018-06-01] MEDS: PROZAC PO SCH (09:20)
--- NOTE | 2018-06-01 10:42 | PROGRESS NOTE ---
DATE: 06/01/2018 INTERVAL HISTORY: Mr. Alonzo underwent bronchoscopy and video-assisted thoracoscopy; about 2 L drained of right-sided pleural effusion. Pleural biopsy and chest tube placement on the right side yesterday. He was kept intubated after the procedure. He did not have any other acute overnight events, except that he has been hypotensive. SUBJECTIVE: He is arousable to verbal stimuli. Not in any acute distress currently. VITALS: Temperature of 98.3 degrees, pulse of 107, respiratory rate 18, blood pressure 90/60 with MAP of more than 65 on most occasions. He is saturating 97% on mechanical ventilation. PHYSICAL EXAMINATION: General: Not in any acute distress, intubated. HEENT: Oral cavity has endotracheal tube. Pupils are bilaterally equal, reacting to light. Respiratory: He has improved air entry in right inframammary region as compared to yesterday. Examination is limited because of his body positioning and intubated status. He does have bilateral lower lobe crackles in infra-axillary region. Cardiovascular: S1, S2 normal. Tachycardic. No murmur, rub, or gallop. Abdomen: Soft, nontender. Extremities: No lower extremity edema. Neurological: He is arousable with RASS score of zero on propofol. On my previous neurological examination, he did have bilateral sensory and motor loss below knee level with 2+ knee jerks with his power of zero. Currently, he does have right-sided chest tube. LABS: Suggestive of persistent leukocytosis, normocytic anemia, normal platelet count. INR of 1.3. His ABG suggests adequate oxygenation on 40% FiO2. He does have hypokalemia, what appears to be acute kidney injury on chronic kidney disease stage III. His INR is less than 1.5. MICROBIOLOGY: Sputum culture, blood culture: No growth to date. ASSESSMENT AND PLAN: 1. Acute hypoxic respiratory failure and sepsis due to bilateral lower lobe pneumonia, right- sided loculated pleural effusion with suspected lung mass. Follow up urine antigens and blood culture results. Continue oxygenation through mechanical ventilator. He is status post bronchoscopy, which was unremarkable. Video-assisted thoracoscopy with removal of pleural fluid and pleural biopsy which had been sent to pathology. Continue intravenous vancomycin, intravenous cefepime with pharmacy dosing for vancomycin. Surgery on board for chest tube management. Pulmonology on board for endotracheal tube management. I would anticipate spontaneous breathing trial later today. 2. Acute kidney injury on chronic kidney disease stage III. He also appears to have a component of volume depletion. I will start him on intravenous fluids. Continue Albarado catheter for close input and output monitoring, and follow up with basic metabolic panel tomorrow. 3. Remote history of deep vein thrombosis or pulmonary embolus on home Coumadin and supratherapeutic INR on presentation, status post video-assisted thoracoscopy and removal of fluid and chest tube placement on June 01. He is status post intravenous vitamin K. He did have previous inferior vena cava filter in place. Continue to hold warfarin and start him on enoxaparin for deep vein thrombosis prophylaxis. Once no more further surgical plans are clear, at that point I will resume his Coumadin. 4. History of orthostatic hypotension leading to multiple syncope. Add intravenous prednisone until he starts taking by mouth, at which point I will start him on oral prednisone and Florinef. 5. Hypokalemia being repleted and I am giving him intravenous fluids for hypotension, which is likely because of volume depletion and use of propofol. DISPOSITION: The patient's condition remains critical. More than 30 minutes of critical care time was spent in taking care of this patient. I called the patient's , who is a surrogate decision maker, and answered all of her questions on the phone. cc: Stanislav Ochoa MD
--- NOTE | 2018-06-01 14:28 | PULMONOLOGY PROGRESS NOTE ---
DATE: 06/01/2018 SUBJECTIVE: Sedation is on hold. The patient is arousable. He is following simple commands. OBJECTIVE: Vital Signs: The patient has been afebrile since yesterday morning. Blood pressure 97/62, heart rate 107, respiratory rate 18, oxygen saturation 97%. HEENT: Pupils are equal and reactive. Oropharynx is clear. Neck: Is supple. Chest: Reveals chest tube in the right chest. No definite air leak. Coarse breath sounds at the right base. Cardiac: S1-S2. Abdomen: Is soft. Extremities: Are without edema. LABORATORIES: Sodium 141, potassium 3.3, chloride 104, bicarbonate 21, BUN 24, creatinine 2.3. White blood count 17.7, hemoglobin 11.9, platelet count 249,000. Arterial blood gas pH 7.37, pCO2 of 38, pO2 of 140. No new culture data. Biopsy specimens pending. IMPRESSION: 1. Hemorrhagic pleural effusion. 2. Hypoxemic respiratory failure, status post thoracoscopy. 3. History of dementia. 4. History of pulmonary emboli with prior inferior vena cava filter placement. 5. Stable chronic renal insufficiency. PLAN: 1. Extubate this morning. 2. Wean oxygen as tolerated. 3. Await pathology reports. 4. Continue bronchial hygiene and current antibiotic regimen. TIME SPENT CRITICAL CARE: 30+ minutes. cc: Fede Del Valle MD
[2018-06-01] MEDS: LEVAQUIN 250 MG/D5W 250 MG/50 ML IVPB IV SCH (15:58)
[2018-06-01] MEDS: SOLU-MEDROL IV SCH ×2 (15:58→23:12)
--- NOTE | 2018-06-01 19:06 | GENERAL SURGERY PROGRESS NOTE ---
DATE: 06/01/2018 SUBJECTIVE: He is extubated, doing okay. Minimal, approximately 80 mL of chest tube output. I reviewed his x-ray. He had a pneumothorax yesterday even postoperatively. There was increase in fluid in the right pneumothorax. OBJECTIVE: There is some subcutaneous edema on the right. LABORATORY DATA: I reviewed his labs. ASSESSMENT AND PLAN: A 62-year-old gentleman status post right video-assisted thoracoscopic surgical drainage of effusion. We will monitor the chest tube output through the weekend. He does not have an air leak. Keep it to suction. Follow along. Dr. Scott will follow the patient for the weekend. cc: Fidelina Jean MD
[2018-06-02] MEDS: MORPHINE IV PRN ×4 (00:07→23:34)
[2018-06-02] MEDS: DUONEB (A & A) INH SCH ×6 (03:30→23:41)
[2018-06-02] MEDS: LOVENOX SUBQ SCH (05:37)
[2018-06-02] MEDS ORDERED: VANCOMYCIN 1,500 MG in NS 250 ML IV SCH (06:00)
[2018-06-02 06:53] LABS: CALCIUM 8.3 mg/dL (8.8-10.2); CREATININE 1.9 mg/dL (0.7-1.2); POTASSIUM 4.1 mmol/L (3.5-5.1)
[2018-06-02 07:08] LABS: INR 1.15; PROTIME 15.7 Seconds (11.0-16.0)
[2018-06-02 07:13] LABS: ALB/GLOB RATIO 0.7; ALBUMIN 2.4 g/dL (3.5-5.0); DIRECT BILIRUBIN 0.2 mg/dL (0.00-0.20); TOTAL BILIRUBIN 0.45 mg/dL (0.20-1.00)
--- NOTE | 2018-06-02 07:40 | Diag Imaging Result Doc PS360 ---
CHEST-PORTABLE - 06/02/2018 INDICATION: Pneumonia COMPARISON: 06/01/2018 FINDINGS: The endotracheal tube is no longer present. Stable right chest tube. Stable right hydropneumothorax. This occupies about 33% of the hemithorax. There has been decrease in the soft tissue gas at the chest tube entry site. There is some increasing retrocardiac atelectasis or consolidation. Stable hazy interstitial pulmonary edema. Heart size remains top normal. IMPRESSION: 1. Endotracheal tube has been removed. 2. Worsening aeration of the left lung base. Electronically signed by Chet Hammer 06/02/2018 7:37 AM
[2018-06-02] MEDS: SOLU-MEDROL IV SCH (08:10)
[2018-06-02] MEDS: PROZAC PO SCH (08:10)
[2018-06-02] MEDS: PROTONIX IV SCH ×2 (08:10→19:30)
[2018-06-02] MEDS: FLORINEF PO SCH (08:15)
[2018-06-02] MEDS: PREDNISONE PO SCH (08:16)
--- NOTE | 2018-06-02 10:23 | PROGRESS NOTE ---
DATE: 06/02/2018 INTERVAL HISTORY: Mr. Alonzo was extubated yesterday and he has been doing good since then. He continues to have right-sided hydropneumothorax and chest tube is in place. He is hungry and wants to eat. We discussed about bronchoscopy and thoracoscopy findings and answered all of his questions. PHYSICAL EXAMINATION: VITAL SIGNS: Currently, vitals suggest temperature of 97.6 degrees, pulse 87, respiratory rate 17, blood pressure 127/80, saturating 98% on 4 L nasal cannula. GENERAL: Does not appear in any acute distress. HEENT: Oral cavity is moist. No pallor, cyanosis, clubbing or icterus. LUNGS: Air entry decreased bilateral inframammary regions. There are significant crackles bilaterally especially on the right side where air entry appears to have decreased as well as to normal. HEART: No murmurs, rubs or gallops. ABDOMEN: Soft, nontender. EXTREMITIES: No lower extremity edema. NEUROLOGICAL: He is alert, oriented x3. He does have a right-sided chest tube without any air leak. On my previous neurological examination, he did have bilateral sensory and motor loss below knee level with 2+ knee jerks and power of 0. Currently, he is alert and oriented x3. LABS: No CBC or BMP today. His INR is 1.15. IMAGING: Chest x-ray today suggestive of endotracheal tube has been removed and with aeration of the left lung base with persistent consolidation; however, clinically he looks better. Microbiology: No positive to date. ASSESSMENT AND PLAN: 1. Acute hypoxic respiratory failure and sepsis due to bilateral lower lobe pneumonia, right-sided loculated pleural effusion with suspected pleural based lung mass status post bronchoscopy and video assisted thoracoscopy on May 31, 2018 with removal of about 2 L of serosanguineous pleural fluid and pleural biopsies sent to pathology. He was initially kept intubated postoperatively and now is status post extubation on June 01. Continue intravenous vancomycin and intravenous cefepime. Surgery is on board for chest tube management. So far, culture data has been negative. His hydropneumothorax on the right side is stable. 2. Acute kidney injury on chronic kidney disease stage 3, improved after intravenous fluid resuscitation. Start patient on p.o. diet with close input/output and BMP monitoring. 3. Remote history of DVT, pulmonary embolism 5 years ago; on home Coumadin and supratherapeutic INR on presentation. Status post vitamin K. He does have IVC filter in place. Continue to hold warfarin since his chest tube output still appears bloody and continue to observe him for DVT prophylaxis. 4. History of orthostatic hypotension leading to multiple syncope. Continue intravenous prednisone for today and start him on his home dose of prednisone and fludrocortisone tomorrow. 5. Disposition: I will continue to monitor patient inside ICU for another 24 hours. His course has been improving; however, he still has significant infiltrate bilaterally with pleural effusions. Plan of care discussed with him. All of his questions have been answered. cc: Stanislav Ochoa MD MTDD
--- NOTE | 2018-06-02 10:49 | PROGRESS NOTE ---
DATE: 06/02/2018 SUBJECTIVE: Mr. Alonzo is in our ICU. He has a right-sided chest tube which draining serosanguineous fluid. He still has a hydro pneumothorax. His right chest tube is a little bit kinked at the sentinel hole, but otherwise is well into the chest. PLAN: We will pull the chest tube out slightly in hopes that it functions a little bit better. cc: Asya Scott MD
--- NOTE | 2018-06-02 14:21 | HEMO/ONC CONSULTATION ---
DATE: 05/31/2018 Thank you for the consultation on this pleasant 62-year-old gentleman known to Dr. Garcia last seen in clinic on 05/29/2018 regarding new findings of a large loculated right pleural effusion with known history of lung nodules. Plan at time of release from clinic on 05/29 was for patient to return to clinic for further lab and evaluation on 06/04 with intent to admit to [facility] at that time to undergo bronchoscopy, fluoroscopy and pleural biopsy with pleurodesis as needed for further evaluation regarding definitive diagnosis for treatment plan. Unfortunately, patient developed increasing shortness of breath and vomiting blood at which time he reported to [facility] Emergency Department and admitted for further evaluation and management. Upon admission further workup revealed hypoxic respiratory failure, patient placed on non- rebreather and eventually transitioned to BiPAP. Patient was also found to be septic from urinary tract infection involving both strep and Legionella. Currently on IV antibiotic therapy with vancomycin and cefepime. The patient has a known history of clotting disorder on therapy with Coumadin with elevated INR at 6 on arrival to the emergency department, Coumadin was discontinued and patient was treated with IV vitamin K in preparation for procedures. [facility] has been consulted again as patient is known to Dr. Jefferson Garcia for further evaluation and recommendations from an oncological standpoint during hospitalization. ALLERGIES: No known drug allergies. PAST MEDICAL HISTORY: Dementia, hypertension, chronic pain, DVT, PE on Coumadin therapy, coronary artery disease, arthritis, GERD, and cervical spine stenosis, lung nodule. PAST SURGICAL HISTORY: Appy, robin, gastrectomy, TURP, right knee, IVC filter placement, PTCA with coronary stent, cervical spine fusion and esophageal revision. SOCIAL HISTORY: Tobacco none, alcohol none, illicit substance none. FAMILY HISTORY: Cancer and coronary artery disease. PHYSICAL EXAM: Temperature 99.2 degrees, pulse 111, blood pressure 145/81, respirations 31.General: Patient is intubated and sedated in intensive care unit. Time of visit just recently postoperative. HEENT: Atraumatic, normocephalic. SHARONDA. Heart: S1, S2. Regular rate and rhythm. No murmur, gallop, or rub. Chest: Bilateral breath sounds. Clear to auscultation. Decreased bases. Right chest tube in place. Abdomen: Soft, nondistended, nontender. Bowel sounds positive. Extremities: Generalized weakness status postop recovering from anesthesia. Skin: Clean, warm, dry and intact. Dressing to right chest tube with no drainage noted. Neuro: Intubated, unable to fully assess. Patient does open eyes and track. Psych: Intubated. LAB: WBC 18.5, hemoglobin 12.9, hematocrit 43.1, platelet count 294,000. Sodium 148, potassium 3.0, chloride 105, CO2 22, BUN 20, creatinine 2.5, glucose 73. IMAGING: CT of the chest on 05/30 revealed loculated right pleural effusion large amount with atelectasis versus pneumonia involving the left lower lobe and patchy pneumonia in the left upper lobe. Echocardiogram on 05/30 revealed trace tricuspid regurgitation, mild left ventricular hypertrophy with an ejection fraction of 63%. No clear evidence of pericardial effusion, likely pericardial fat pad. ASSESSMENT AND PLAN: 1. Right large loculated pleural effusion. Patient seen in intensive care unit immediate following surgery for bronchoscopy, fluoroscopy and pleural biopsy. We will await pathology with further recommendations to follow pending results. 2. Hypoxic respiratory failure currently intubated on vent support. Management per pulmonology. 3. Urinary tract sepsis, strep Legionella. Continue IV antibiotics per primary/ID. 4. Pneumonia. Continue antibiotic therapy per primary/ID. 5. Hypertension. Home medications continued. Management per primary. 6. Dementia. Home medications continued. Management per primary. Dictated by JOSH Gonzales for Jefferson Garcia MD cc: Jefferson Garcia MD
[2018-06-02] MEDS: LEVAQUIN 250 MG/D5W 250 MG/50 ML IVPB IV SCH (15:03)
--- NOTE | 2018-06-02 18:11 | PULMONOLOGY PROGRESS NOTE ---
DATE: 06/02/2018 SUBJECTIVE: The patient is awake, alert and conversant. He is without specific complaints. OBJECTIVE: The patient has been afebrile for the last 24 hours. Blood pressure 129/65, heart rate 96, respiratory rate 19, oxygen saturation 97% on 4 L per nasal cannula. HEENT: Pupils are equal and reactive. Oropharynx is clear. Neck is supple. Chest reveals decreased breath sounds, right base. Chest tube in position. Abdomen is soft. Extremities without edema. DIAGNOSTIC DATA: Chest x-ray reveals some kinking of the chest tube with fluid at the right base. LABORATORY DATA: Sputum cultures reveal no growth. Sodium 143, potassium 4.1, chloride 106, bicarbonate 25, BUN 30, creatinine 0.9. IMPRESSION: A 62-year-old with: 1. Hemorrhagic pleural effusion. 2. Hypoxemic respiratory failure. 3. History of pulmonary emboli. 4. Chronic renal insufficiency. 5. Dementia. PLAN: 1. Continue bronchial hygiene. 2. Continue to wean oxygen as tolerated. 3. Chest tube adjustment per Dr. Scott. 4. Okay for transfer to the floor from a pulmonary standpoint. cc: Fede Del Valle MD
[2018-06-03] MEDS: DUONEB (A & A) INH SCH ×6 (02:44→23:29)
[2018-06-03] MEDS: MORPHINE IV PRN ×3 (04:40→23:54)
[2018-06-03] MEDS: LOVENOX SUBQ SCH (05:38)
[2018-06-03 06:32] LABS: HEMATOCRIT 35.8 % (42.0-52.0); HEMOGLOBIN 10.6 g/dL (14.0-18.0); IMM GRAN# 0.05 X1000 (0.0-0.04); IMM GRAN% 0.3 % (0.0-0.5); LYMPH# 0.33 X1000 (1.2-3.4); LYMPH% 2.2 % (20.5-51.1); MCH 26.1 PG (27-31); MCHC 29.6 g/dL (33-37); MCV 88.2 FL (81-99); MONO# 0.51 X1000 (0.11-0.59); MONO% 3.3 % (1.7-9.3); MPV 10.9 FL (7.4-10.4); NEUT# 14.34 X1000 (1.4-6.5); NEUT% 94.2 % (42.2-75.2); PLT 230 X1000 (130-400); RBC 4.06 XMIL (4.7-6.1); RDW 14.7 % (11.5-14.5); WBC 15.23 X1000 (4.8-10.8)
[2018-06-03 06:39] LABS: CALCIUM 8.4 mg/dL (8.8-10.2); CREATININE 1.7 mg/dL (0.7-1.2); PHOSPHORUS 2.2 mg/dL (2.7-4.5); POTASSIUM 3.4 mmol/L (3.5-5.1)
[2018-06-03 06:59] LABS: INR 1.07; PROTIME 14.7 Seconds (11.0-16.0)
[2018-06-03 07:36] LABS: LYMPHS 8 % (21-51); SEGS 92 % (42-75)
--- NOTE | 2018-06-03 07:48 | Diag Imaging Result Doc PS360 ---
CHEST-PORTABLE - 06/03/2018 INDICATION: Pneumonia COMPARISON: 06/02/2018 FINDINGS: Stable right chest tube. There is continued decrease in the soft tissue gas at the right chest wall. Stable small to moderate right basilar hydropneumothorax. Stable background interstitial infiltrates suggesting pulmonary edema. Stable opacification of the left lower lobe. Stable cardiomegaly. IMPRESSION: No change from prior. Electronically signed by Chet Hammer 06/03/2018 7:46 AM
[2018-06-03] MEDS: PROTONIX IV SCH (08:12)
[2018-06-03] MEDS: FLORINEF PO SCH (08:12)
[2018-06-03] MEDS: PROZAC PO SCH (08:12)
[2018-06-03] MEDS: PREDNISONE PO SCH (08:15)
[2018-06-03] MEDS: KLOR-CON PO SCH ×2 (08:16→13:32)
--- NOTE | 2018-06-03 11:11 | PULMONOLOGY PROGRESS NOTE ---
DATE: 06/03/2018 SUBJECTIVE: The patient is awake, alert. He is without complaints. OBJECTIVE: Vital Signs: The patient has been afebrile for the last 24 hours. Blood pressure 145/83, heart rate 86, respiratory rate 20. Oxygen saturation 95% on 4 L per nasal cannula. HEENT: Pupils are equal and reactive. Oropharynx appears clear. Neck: Supple. Chest: Reveals chest tube in good position. There is a fluid level moving to and fro. No air leak. Decreased breath sounds right base. Cardiac: S1, S2. Abdomen: Soft. Extremities: Without edema. OUTPUT: Chest tube output 580 mL. LABORATORIES: Sodium 145, potassium 3.4, chloride 109, bicarbonate 26, BUN 33, creatinine 1.7. IMAGING: Chest x-ray reveals continued fluid at the left base. The chest tube has been straightened out and has less of a kink, but the right base is unchanged. IMPRESSION: A 62-year-old with: 1. Hemorrhagic pleural effusion. 2. Hypoxemic respiratory failure. 3. Chronic renal insufficiency. 4. Dementia. 5. Continued hydrothorax. PLAN: 1. A CT scan of the thorax today to re-evaluate the right base. 2. Continue bronchial hygiene. 3. Continue chest tube to water seal. 4. Okay for transfer to the floor from a Pulmonary standpoint. 5. Await biopsy results. cc: Fede Del Valle MD
--- NOTE | 2018-06-03 12:21 | PROGRESS NOTE ---
DATE: 06/03/2018 INTERVAL HISTORY: No acute events overnight. His breathing status was stable. His chest tube was adjusted yesterday and is draining out more bloody output. Chest x-ray is suggestive of persistent pneumonia. His white cell count is trending down. SUBJECTIVE: He is feeling the same. Denies any chest pain or shortness of breath except the chest pain at the chest tube site. No nausea, vomiting, or abdominal pain. He had a good bowel movement. We discussed about his exam findings, plan. All of his questions have been answered. CURRENT VITALS: Detect temperature of 98.6 degrees, pulse of 82, respiratory rate 22, blood pressure 150/84, saturating 94% on 4 L nasal cannula. PHYSICAL EXAMINATION: General: Does not appear in any acute distress. Oral cavity is moist. No pallor, cyanosis, clubbing, or icterus. Decreased air entry bilateral inframammary and infraaxillary region with inspiratory crackles. He had a right-sided chest tube. Cardiovascular: S1, S2 normal. No murmur, rub, or gallop. Regular. Abdomen: Soft, nontender. No lower extremity edema. He is alert and oriented x3. On my previous neurological examination, he did have bilateral sensory and motor loss below-knee level with 2+ knee jerks and power of 0. Input and output suggest he was positive 1 L. Cumulative input and output suggest it is close to equal. LABS: Suggestive of improving leukocytosis, normocytic anemia, normal platelet count, INR of 1.0, hypokalemia, chronic kidney disease stage 3, and hypophosphatemia. Hypokalemia is being repleted. ASSESSMENT AND PLAN: 1. Acute hypoxic respiratory failure and sepsis due to bilateral lower lobe pneumonia, right- sided loculated pleural effusion with suspected pleural base lung mass, status post bronchoscopy and video-assisted thorascopic procedure on 05/31/2018 with removal of about 2 L of bloody serosanguineous pleural fluid and pleural biopsies. He is status post extubation postoperatively on June 01. Continue intravenous vancomycin and intravenous levofloxacin for pneumonia. Surgery on board for chest tube management, which is in place for his right-sided loculated hydropneumothorax which is decreasing in size. 2. Acute kidney injury on chronic kidney disease stage 3, improved after intravenous fluid resuscitation. Continue oral diet with close input and output monitoring and BMP. 3. Reported episode of hemetemesis on admission: He hasn't have any such episode inside the hospital. His Hb is also stable.This could be MW tear in the setting of vomiting and elevated INR. I will discontinue PPI and start him on home H2 blockers. 3. History of deep venous thrombosis and pulmonary embolism more than 5 years ago, on home Coumadin and supratherapeutic INR on presentation, status post vitamin K and status post inferior vena cava filter in the past. Continue to hold warfarin, considering still bloody output through chest tube. Continue enoxaparin for deep venous thrombosis prophylaxis. 4. History of orthostatic hypotension leading to multiple syncope. Continue home prednisone and fludrocortisone. 5. Disposition. I will continue to monitor patient inside intensive care unit. Surgery on board for chest tube management. We will appreciate further recommendation. Plan of care was discussed with the patient. I called the patient's and informed her about patient's clinical condition and answered all of her questions. cc: Stanislav Ochoa MD MTDD
--- NOTE | 2018-06-03 14:08 | Diag Imaging Result Doc PS360 ---
CT THORAX W/O CONTRAST - 06/03/2018 INDICATION: hydropneumothorax COMPARISON: 05/30/2018 FINDINGS: There is a right basilar chest tube in good position directed towards the upper lung posteriorly. There is a small right basilar hydropneumothorax of about 20 % of the hemithorax. There are apparent surgical suture lines of the right upper lobe. There is some dense linear scarring or infiltrate here. There is also some infiltrate or atelectasis in the lower and middle lobes. There is significant collapse of the majority of the left lower lobe with mucous plugging of the left lobar bronchus. There is a trace left pleural effusion as well. There is some hazy infiltrate throughout the left upper lobe. There is mild cardiomegaly. IMPRESSION: 1. Plugging of the left lower lobe bronchus with complete collapse of the left lower lobe. Trace left pleural effusion. Hazy infiltrate throughout the left upper lobe. 2. Right hydropneumothorax of about 20%. Right chest tube in good position. Multilobar infiltrate throughout the right lung. This exam was performed using automated exposure control, adjustment of mA or kV according to patient size, and/or use of iterative reconstruction technique Electronically signed by Chet Hammer 06/03/2018 2:06 PM
[2018-06-03] MEDS: LEVAQUIN 250 MG/D5W 250 MG/50 ML IVPB IV SCH (16:06)
--- NOTE | 2018-06-03 18:21 | PROGRESS NOTE ---
DATE: 06/03/2018 SUBJECTIVE: Mr. Alonzo has a right-sided chest tube and his lung is not completely expanded there on the right. I pulled his chest tube back yesterday and it is in better position. There is no ongoing air leak. There is little drainage from it, so there is a persistent right hydropneumothorax of about 20%. We will continue the right chest tube on suction. Continue supportive care. Dr. Jean returns tomorrow. cc: Asya Scott MD
[2018-06-03] MEDS: MUCOMYST 20% INH SCH (19:40)
[2018-06-03] MEDS ORDERED: VANCOMYCIN 1,500 MG in NS 250 ML IV SCH (20:00)
[2018-06-03] MEDS: AMBIEN PO SCH (20:03)
[2018-06-03] MEDS: CULTURELLE PO SCH (20:03)
[2018-06-03] MEDS: ZANTAC PO SCH (20:03)
[2018-06-03] MEDS: NAMENDA PO SCH (20:03)
[2018-06-03] MEDS: ARICEPT PO SCH (20:04)
[2018-06-04] MEDS: DUONEB (A & A) INH SCH ×6 (03:19→23:26)
[2018-06-04] MEDS: MORPHINE IV PRN ×6 (03:51→23:58)
[2018-06-04] MEDS: LOVENOX SUBQ SCH (05:47)
[2018-06-04 06:43] LABS: INR 0.97; PROTIME 13.6 Seconds (11.0-16.0)
[2018-06-04 07:18] LABS: CALCIUM 8.2 mg/dL (8.8-10.2); CREATININE 1.4 mg/dL (0.7-1.2)
--- NOTE | 2018-06-04 07:44 | Diag Imaging Result Doc PS360 ---
EXAM: CHEST-PORTABLE INDICATION: Pneumonia TECHNIQUE: One view COMPARISON: 06/03/2018 FINDINGS: The right chest tube is in stable position. Given differences in positioning, the small to moderate-sized right basilar hydropneumothorax is approximately stable. Interstitial thickening suggesting edema appears to have improved, at least on the left. No new consolidation is identified. Cardiac silhouette is stable. IMPRESSION: Slight improvement of interstitial edema. Stable chest, otherwise. Electronically signed by Geovanny Dowd 06/04/2018 7:42 AM
[2018-06-04] MEDS: PROZAC PO SCH (08:02)
[2018-06-04] MEDS: CULTURELLE PO SCH ×2 (08:02→20:06)
[2018-06-04] MEDS: ZANTAC PO SCH ×2 (08:02→20:06)
[2018-06-04] MEDS: FLORINEF PO SCH (08:02)
[2018-06-04] MEDS: NAMENDA PO SCH ×2 (08:03→20:06)
[2018-06-04] MEDS: PREDNISONE PO SCH (08:03)
[2018-06-04] MEDS: COREG PO SCH ×3 (08:06→20:07)
[2018-06-04] MEDS: LEVAQUIN 750 MG/D5W 750 MG/150 ML IVPB IV SCH (08:07)
[2018-06-04] MEDS: APRESOLINE PO SCH ×2 (08:54→08:55)
[2018-06-04] MEDS ORDERED: LASIX IV ONE (08:57)
[2018-06-04] MEDS ORDERED: XANAX PO SCH (09:00)
[2018-06-04] MEDS: LIDODERM TOP SCH (09:30)
--- NOTE | 2018-06-04 09:57 | PROGRESS NOTE ---
DATE: 06/04/2018 INTERVAL HISTORY: Yesterday. CT scan of his chest had suggested decreasing right-sided hydropneumothorax, left lower lobe bronchus mucous plugging with collapse. He continues to have nodular opacities, especially on the right side of the lung. SUBJECTIVE: He says he is feeling the same as yesterday, if not better; however, he has started having hemoptysis again, which is bothering him. His hemoglobin and blood count have been stable until yesterday, and I will repeat it tomorrow. OBJECTIVE: Vital Signs: Currently suggest he has been afebrile. Temperature of 99.4 degrees, pulse of 100, respiratory 33, blood pressure 147/91. He is saturating 91% on 6 L nasal cannula. General: He is in mild shortness of breath and appears to be in acute distress. He is complaining of chest pain at the right-sided chest tube site. Lungs: Decreased air entry bilateral inframammary region with inspiratory crackles. Cardiovascular: S1, S2 normal. No murmur, rub, or gallop. Regular. Abdomen: Soft, nontender. Extremities: No lower extremity edema. Neurologic: He is alert, oriented x3. On my previous neurological examination, he had bilateral sensory and motor loss below-knee level with 2+ knee jerk reflexes. He had power of 0 on 5 bilateral lower extremities. LABORATORIES: No CBC today. BMP suggestive of hypernatremia, hyperchloremia. His acute kidney injury has resolved. No new microbiological data. 1 of the 2 blood cultures drawn on 05/30 is growing gram positive cocci. I will follow up with final results. IMAGING: Chest x-ray this morning suggests slight improvement of interstitial edema and otherwise chest appears stable. ASSESSMENT AND PLAN: 1. Acute hypoxic respiratory failure and sepsis due to bilateral lower lobe pneumonia, right- sided loculated pleural effusion with pleural-based lung mass, status post bronchoscopy and video-assisted thoracoscopy on 05/31/2018 and removal of 2 L of serosanguineous pleural fluid with pleural biopsies; status post extubation on June [address] scan on June 03 suggestive of decreasing hydropneumothorax with chest tube in appropriate position and left lower lobe collapse. Continue intravenous vancomycin and intravenous levofloxacin, the dose of which I have adjusted based on his kidney function. Follow up final blood culture results as 1 of the 2 was growing gram-positive cocci. Surgery on board for chest tube management. 2. Hemoptysis. Follow up with CBC today. This is likely in the setting of especially right- sided pneumonia and those nodular opacities. Sputum culture did not have any growth. Continue to monitor his respiratory status closely. 3. Acute kidney injury on chronic kidney disease stage 3, now improved after intravenous fluid resuscitation. I will give him intravenous Lasix once since his hypoxia is worsening and will follow up with frequent BMP. 4. History of DVT and PE more than 5 years ago on home Coumadin. I am holding Coumadin. He previously required vitamin K to correct his supratherapeutic INR. He did have IVC filter in the past. 5. History of orthostatic hypotension leading to multiple syncope. Continue home prednisone and fludrocortisone. 6. Essential hypertension. Resume his home carvedilol. 7. Others. Start him on lidocaine patch for chest tube site pain, H2 blockers for history of chronic GERD, probiotics for history of chronic diarrhea. However, he has not had a bowel movement now, alprazolam for anxiety and zolpidem for insomnia. 8. Disposition. I will continue to monitor patient in ICU since his hypoxia is worsening and his hemoptysis is also worsening. If he is hemodynamically stable and his hypoxia is better, I might consider transferring him to a step-down unit later today or mostly tomorrow. Plan of care was discussed with the patient. All of his questions have been answered thank you. cc: Stanislav Ochoa MD MTDD
[2018-06-04] MEDS: MUCOMYST 20% INH SCH ×2 (11:17→20:28)
[2018-06-04 13:12] LABS: BASO# 0.01 X1000 (0.0-0.2); BASO% 0.1 % (0.0-0.8); EOS# 0.15 X1000 (0.0-0.7); EOS% 1.4 % (0.0-10.0); HEMATOCRIT 39.1 % (42.0-52.0); HEMOGLOBIN 11.6 g/dL (14.0-18.0); IMM GRAN# 0.13 X1000 (0.0-0.04); IMM GRAN% 1.2 % (0.0-0.5); LYMPH% 4.7 % (20.5-51.1); MCH 26.1 PG (27-31); MCHC 29.7 g/dL (33-37); MCV 88.1 FL (81-99); MONO# 0.63 X1000 (0.11-0.59); MONO% 5.9 % (1.7-9.3); NEUT# 9.32 X1000 (1.4-6.5); NEUT% 86.7 % (42.2-75.2); PLT 228 X1000 (130-400); RBC 4.44 XMIL (4.7-6.1); RDW 14.9 % (11.5-14.5); WBC 10.74 X1000 (4.8-10.8)
[2018-06-04 13:17] LABS: BANDS 4 % (0-1); EOS 2 % (1-10); LYMPHS 10 % (21-51); MONO 2 % (1-9); SEGS 82 % (42-75)
--- NOTE | 2018-06-04 19:01 | GENERAL SURGERY PROGRESS NOTE ---
DATE: 06/04/2018 SUBJECTIVE: He seems more alert, breathing comfortably. No fevers. No tachycardia. OBJECTIVE: Blood pressure 129/69. His right chest tube continues to put out. There is no air leak. It is to suction. It has had 110 out in the last 24 hours with 540 the day before and 580 the day before that. I reviewed his x-ray. He has persistent effusion in the lower lobe with some incomplete expansion of the lung in this location. I reviewed his CT scan. ASSESSMENT AND PLAN: A 59-year-old gentleman with right effusion. Keep the chest tube pending his pathology to help guide further therapy. Unclear etiology. Unfortunately, his lung is not completely expanding despite adequate placement of the chest tube. We will continue to monitor him with aggressive pulmonary toileting. cc: Fidelina Jean MD
[2018-06-04] MEDS: AMBIEN PO SCH (20:06)
[2018-06-04] MEDS: ARICEPT PO SCH (20:06)
[2018-06-04] MEDS: XANAX PO PRN (20:07)
[2018-06-04] MEDS: VANCOMYCIN 1,500 MG in NS 250 ML IV SCH (20:24)
--- NOTE | 2018-06-04 20:32 | PULMONOLOGY PROGRESS NOTE ---
DATE: 06/04/2018 SUBJECTIVE: The patient is awake, alert and conversant. Has had cough with some bloody purulent secretions. He is without specific complaints. OBJECTIVE: Vital Signs: The patient has been afebrile for the last 24 hours. Blood pressure 121/84, heart rate 97, respiration rate 22. Oxygen saturation 92% on 5 L per nasal cannula. HEENT: Pupils are equal and reactive. Oropharynx is clear. Neck: Supple. Chest: Reveals cough with rhonchi bilaterally and decreased breath sounds right base. Cardiac: S1, S2. Abdomen: Soft and without hepatosplenomegaly. Extremities: Without edema. LABORATORIES: White blood count 10.7, hemoglobin 11.6, platelet count 228,000. Chest x-ray reveals slight decreased interstitial edema with persistent right-sided hydropneumothorax. IMPRESSION: A 62-year-old with: 1. Hemorrhagic pleural effusion. 2. Grossly purulent/bloody secretions/sputum. 3. Hypoxemic respiratory failure. 4. Chronic renal insufficiency. 5. Dementia. 6. Hydropneumothorax. PLAN: 1. Agree with current expansion of antibiotics as outlined by Dr. Ochoa. 2. Collect sputum for C and S. 3. Continue chest tube management per General Surgery. 4. Awaiting biopsy report. cc: Fede Del Valle MD
[2018-06-05] MEDS: DUONEB (A & A) INH SCH ×6 (03:58→23:29)
[2018-06-05] MEDS: LOVENOX SUBQ SCH ×2 (04:45→06:10)
[2018-06-05] MEDS: MORPHINE IV PRN ×6 (04:45→23:57)
[2018-06-05 06:27] LABS: INR 1.1; PROTIME 15.1 Seconds (11.0-16.0)
[2018-06-05 06:37] LABS: BASO# 0.01 X1000 (0.0-0.2); BASO% 0.1 % (0.0-0.8); EOS# 0.28 X1000 (0.0-0.7); EOS% 3.1 % (0.0-10.0); HEMATOCRIT 39.9 % (42.0-52.0); HEMOGLOBIN 11.8 g/dL (14.0-18.0); IMM GRAN# 0.15 X1000 (0.0-0.04); IMM GRAN% 1.7 % (0.0-0.5); LYMPH# 1.15 X1000 (1.2-3.4); LYMPH% 12.9 % (20.5-51.1); MCH 25.8 PG (27-31); MCHC 29.6 g/dL (33-37); MCV 87.3 FL (81-99); MONO# 0.63 X1000 (0.11-0.59); MONO% 7.1 % (1.7-9.3); MPV 11.1 FL (7.4-10.4); NEUT% 75.1 % (42.2-75.2); PLT 214 X1000 (130-400); RBC 4.57 XMIL (4.7-6.1); RDW 14.9 % (11.5-14.5); WBC 8.92 X1000 (4.8-10.8)
--- NOTE | 2018-06-05 07:08 | Diag Imaging Result Doc PS360 ---
EXAM: CHEST-PORTABLE 06/05/2018 HISTORY: Pneumonia TECHNIQUE: AP portable at 0517 COMMENT: There is a right chest tube. There is some residual pleural fluid and/or pleural thickening on the right. There is generalized interstitial opacity and some retrocardiac opacity which may represent atelectasis or pneumonia. Compared to 06/04/2018, there has been no significant change. Compared to 06/03/2018 the right-sided residual pneumothorax has diminished in volume, there has been decrease in the soft tissue emphysema in the right chest wall and the atelectasis in the left lower lobe has improved. IMPRESSION: Pulmonary edema. Small residual right pneumothorax with pleural thickening and/or fluid. Improving atelectasis or pneumonia left lower lobe. Mild pulmonary edema. Electronically signed by Gus Rosenberg 06/05/2018 7:06 AM
[2018-06-05 07:09] LABS: CALCIUM 8.5 mg/dL (8.8-10.2); CREATININE 1.4 mg/dL (0.7-1.2); MAGNESIUM 1.9 mg/dL (1.5-2.7); PHOSPHORUS 2.2 mg/dL (2.7-4.5); POTASSIUM 3.6 mmol/L (3.5-5.1)
[2018-06-05] MEDS: MUCOMYST 20% INH SCH ×2 (07:53→19:10)
[2018-06-05] MEDS: LASIX IV SCH ×2 (08:28→19:45)
[2018-06-05] MEDS: LIDODERM TOP SCH (08:29)
[2018-06-05] MEDS: CULTURELLE PO SCH ×2 (08:30→20:09)
[2018-06-05] MEDS: NAMENDA PO SCH ×2 (08:30→20:09)
[2018-06-05] MEDS: COREG PO SCH ×2 (08:30→20:10)
[2018-06-05] MEDS: FLORINEF PO SCH (08:30)
[2018-06-05] MEDS: PREDNISONE PO SCH (08:30)
[2018-06-05] MEDS: ZANTAC PO SCH ×2 (08:30→20:10)
[2018-06-05] MEDS: PROZAC PO SCH (08:48)
[2018-06-05] MEDS: LEVAQUIN 750 MG/D5W 750 MG/150 ML IVPB IV SCH (08:48)
--- NOTE | 2018-06-05 09:54 | PROGRESS NOTE ---
DATE: 06/05/2018 INTERVAL HISTORY: No acute event overnight. SUBJECTIVE: He continues to have hemoptysis and he is about to collect and send new sputum. He denies any chest pain. He thinks his shortness of breath is a little better than yesterday. His chest discomfort has not really improved with lidocaine patch. We discussed about pending biopsy reports, pneumonia, and answered all of his questions. He does not want any bowel movements by a stool softener since previously he has had a history of chronic diarrhea. VITAL SIGNS: Currently suggest temperature of 97.8 degrees, pulse 89, respiratory rate 20, blood pressure 140/81, saturating 99% on 5 L nasal cannula. PHYSICAL EXAMINATION: He does not appear in any acute distress. His shortness of breath appears to be a little less severe than it was yesterday. HEENT: Oral cavity moist. No pallor, cyanosis, clubbing, or icterus. Decreased air entry, bilateral inframammary region with inspiratory crackles. Cardiovascular: S1, S2 normal. No murmur, rub, or gallop. Regular. Abdomen: Soft, nontender. No lower extremity edema. He is alert and oriented x3. He does have a right-sided chest tube. I could not appreciate any air leak. On a previous neurological examination, he had bilateral sensory and motor loss below knee level with 2+ knee jerks and power of 0/5, bilateral lower extremity. His sensation and power were intact in upper extremities. Input and output suggests -1.8 L yesterday. LABS: Suggestive of resolution of leukocytosis, normocytic anemia, normal platelet count, INR of 1.0, pretty much normal electrolytes. He does have elevated bicarbonate and what appears to be chronic kidney disease stage 3. His phosphorus is 2.2. No new microbiological data. IMAGING: Chest x-ray today morning suggests pulmonary edema, small residual right-sided pneumothorax with pleural thickening and fluid, improving atelectasis and pneumonia of left lower lobe with mild pulmonary edema. ASSESSMENT AND PLAN: 1. Acute hypoxic respiratory failure and sepsis due to bilateral lower lobe pneumonia, right- sided loculated pleural effusion with pleural based lung mass, status post bronchoscopy and video-assisted thorascopic procedure on May 31, and removal of 2 L of serosanguineous to bloody pleural fluid and pleural biopsies, status post extubation on June 01, with a chest tube in place for his persistent hydropneumothorax. Continue intravenous vancomycin and intravenous levofloxacin. Follow up repeat sputum culture results. I will give him additional dose of Lasix considering crackles on examination and pulmonary edema on chest x- ray. Follow up final blood culture results. One of the two was growing gram-positive cocci which could be a contaminant as well. Surgery and pulmonology on board. 2. Hemoptysis. Continue to monitor CBC. He does not have hemodynamic instability at the moment. Continue to monitor respiratory status closely. 3. Acute kidney injury on chronic kidney disease stage 3. Aware. I will monitor BMP on Lasix. 4. Remote history of deep venous thrombosis, pulmonary embolism more than 5 years ago, on home Coumadin. Continue to hold considering his ongoing hemoptysis. He did require vitamin K to correct his supratherapeutic INR on presentation. He is status post inferior vena cava filter in the past. 5. Others. Continue home prednisone and fludrocortisone for history of recurrent syncope and orthostatic hypotension; home carvedilol for essential hypertension; fluoxetine, donepezil, and zolpidem for history of anxiety, early stage dementia, and insomnia; enoxaparin for deep venous thrombosis prophylaxis; alprazolam for anxiety; lidocaine patch for pain around chest tube site, and memantine for dementia 6. Disposition. The patient has been hemodynamically stable for 24 hours and I will consider transferring him to [facility]. Plan of care discussed with him. All of his questions have been answered. cc: Stanislav Ochoa MD
--- NOTE | 2018-06-05 10:00 | GENERAL SURGERY PROGRESS NOTE ---
DATE: 06/05/2018 SUBJECTIVE: More alert, on nasal cannula, but otherwise doing okay. Persistent chest tube output. No air leak. No pneumothorax on chest his x-ray. There is stable right lower effusion despite good chest tube placed in this position. I have increased the suction to -40. Pathology is pending. ASSESSMENT AND PLAN: A 62-year-old gentleman with right-sided effusion, unclear etiology. Pending his pathologic findings, will determine management of his chest tube. It does seem as though the output is decreasing. Will follow along. cc: Fidelina Jean MD
[2018-06-05] MEDS: VANCOMYCIN 1,500 MG in NS 250 ML IV SCH (19:45)
[2018-06-05] MEDS: ARICEPT PO SCH (20:10)
[2018-06-05] MEDS: AMBIEN PO SCH (20:10)
--- NOTE | 2018-06-05 20:43 | PULMONOLOGY PROGRESS NOTE ---
DATE: 06/05/2018 SUBJECTIVE: The patient is awake, alert and conversant. He is eating breakfast. He is without specific complaints. He continues to have some cough and sputum production. OBJECTIVE: Vital Signs: The patient has been afebrile for the last 24 hours. Blood pressure 111/74, heart rate 90, respiratory rate 25, oxygen saturation 96% on 5 L per nasal cannula. HEENT: Pupils are equal and reactive. Oropharynx appears clear. Neck: Is supple. Chest: Reveals crackles at the right base. Cardiac: S1, S2. Abdomen: Soft and without hepatosplenomegaly. Extremities: Without edema. LABORATORIES: Chest x-ray reveals some decrease in the hydrothorax at the right base with decreased atelectasis at the left lower lobe. Sputum culture reveals no bacteria seen. Blood culture on 05/30 is growing a gram-positive cocci, identification pending. IMPRESSION: A 62-year-old with 1. Hemorrhagic pleural effusion. 2. Bloody sputum/hemoptysis. 3. Hypoxemic respiratory failure. 4. Dementia. 5. Chronic renal insufficiency. 6. Hydrothorax. 7. Bacteremia, result pending. PLAN: 1. Continue current antibiotic regimen. 2. Continue bronchial hygiene. 3. Chest tube management per general surgery. 4. Biopsy results have been reviewed, all findings were benign. cc: Fede Del Valle MD
[2018-06-06] MEDS: XANAX PO PRN (00:18)
[2018-06-06] MEDS: DUONEB (A & A) INH SCH ×6 (03:17→23:58)
[2018-06-06] MEDS: MORPHINE IV PRN ×5 (05:25→22:57)
[2018-06-06] MEDS: LOVENOX SUBQ SCH (05:25)
[2018-06-06 05:42] LABS: INR 1.02; PROTIME 14.3 Seconds (11.0-16.0)
--- NOTE | 2018-06-06 07:21 | Diag Imaging Result Doc PS360 ---
EXAM: CHEST-PORTABLE HISTORY: Pneumonia TECHNIQUE: Portable chest COMPARISON: 06/05/2018 FINDINGS: No change in the right-sided chest tube. There is a small right hydropneumothorax inferiorly similar to the prior study. Heart remains borderline mildly prominent. Mild increased interstitial markings in the lower lungs with atelectasis in the right base. The overall appearance is similar to the prior exam. IMPRESSION: Stable chest. Electronically signed by Grant Urbina 06/06/2018 7:19 AM
[2018-06-06] MEDS: MUCOMYST 20% INH SCH ×2 (08:19→19:57)
[2018-06-06] MEDS: FLORINEF PO SCH (08:33)
[2018-06-06] MEDS: ZANTAC PO SCH ×2 (08:33→21:15)
[2018-06-06] MEDS: CULTURELLE PO SCH ×2 (08:33→21:21)
[2018-06-06] MEDS: PREDNISONE PO SCH (08:33)
[2018-06-06] MEDS: LASIX IV SCH (08:33)
[2018-06-06] MEDS: PROZAC PO SCH (08:34)
[2018-06-06] MEDS: NAMENDA PO SCH ×2 (08:34→21:17)
[2018-06-06] MEDS: LEVAQUIN 750 MG/D5W 750 MG/150 ML IVPB IV SCH (08:35)
[2018-06-06] MEDS: LIDODERM TOP SCH (08:35)
[2018-06-06] MEDS: COREG PO SCH ×2 (08:35→21:21)
[2018-06-06] MEDS: PERICOLACE PO SCH ×2 (10:00→21:15)
[2018-06-06 12:39] LABS: CALCIUM 8.6 mg/dL (8.8-10.2); CREATININE 2.1 mg/dL (0.7-1.2)
--- NOTE | 2018-06-06 13:58 | PROGRESS NOTE ---
DATE: 06/06/2018 INTERVAL HISTORY: No other acute events overnight. He is feeling fine. We discussed about the pleural biopsy results. He denies any shortness of breath. He complains of some indigestion. HOSPITAL COURSE SUMMARY: Mr. Alonzo is a 62-year-old man, who was diagnosed to have right- sided pleural effusion a few months ago and was being worked up outpatient. He had underwent thoracenteses outpatient, which had yielded bloody pleural effusion and further diagnoses were ongoing; however, he was admitted because of worsening shortness of breath and was found to have recurrent right-sided pleural effusion with bilateral pneumonia. He has been treated with intravenous antibiotics, and he has underwent VATS with biopsy of the pleural-based lung masses, which has only shown granulomatous tissue without any identifiable etiology. SUBJECTIVE: He continues to have mild degree of hemoptysis. PHYSICAL EXAMINATION: Vitals: Currently, temperature 97.5 degrees, pulse 82, respiratory rate 18, blood pressure 94/64, saturating 96% on 5 L nasal cannula. Input and output suggests he was - 1.8 L yesterday. General: Does not appear in any acute distress. HEENT: Oral cavity is moist. No pallor, cyanosis, clubbing, or icterus. Lungs: Decreased air entry with inspiratory crackles bilateral inframammary region. Heart: S1, S2 normal. No murmur, rub or gallop. Regular. Abdomen: Soft, nontender. Extremities: No lower extremity edema. Neurological: He is alert, oriented x3. He has a right-sided chest tube without any air leak. On previous neurological examination, he had bilateral sensory and motor loss below knee level with 2+ knee jerks and power of 0/5 bilateral lower extremities. His sensation and power were intact bilateral upper extremities. Input and output suggest he is -1.8 L yesterday and positive 600 mL so far today. LABS: Suggestive of his leukocytosis had resolved. His INR is 1.0, normal electrolytes, what appears to be acute kidney injury on chronic kidney disease stage III. MICROBIOLOGY: No new microbiological data. Blood culture was growing coagulase-negative Staphylococcus. ASSESSMENT AND PLAN: 1. Acute hypoxic respiratory failure and sepsis due to bilateral lower lobe pneumonia, right- sided loculated pleural effusion with pleural-based lung mass status post bronchoscopy, video- assisted thoracoscopy on May 31, and removal of 2 L of serosanguineous to bloody pleural fluid and pleural biopsies, which has shown chronic active inflammation, hemosiderin deposition and fibrosis with granulation tissue. He was intubated intraoperatively and status post extubation on June 01 with a chest tube in place for his persistent hydropneumothorax. Since his culture data have been negative, my plan is to discontinue antibiotics today after discussion with Pulmonology. Surgery on board for chest tube management. 2. Hemoptysis with stable hemoglobin and hematocrit without any hemodynamic instability at the moment. Continue to monitor respiratory status. I will resume his Coumadin in the next 24 to 48 hours. 3. Acute kidney injury on chronic kidney disease stage III, likely related to Lasix use which I was giving for his hypoxic respiratory failure. I will just monitor his basic metabolic panel. 4. Remote history of deep vein thrombosis/pulmonary embolus more than 5 years ago on home Coumadin. Continue to hold; once his hemoptysis is stable, I will resume it. He did require vitamin K subcutaneously on presentation because of supratherapeutic INR. He also had inferior vena cava filter in the past. 5. Others: Continue home prednisone and fludrocortisone for history of recurrent syncope and orthostatic hypotension; carvedilol for essential hypertension; fluoxetine, donepezil and zolpidem for history of anxiety, early dementia, insomnia; enoxaparin for deep vein thrombosis prophylaxis; alprazolam for anxiety; lidocaine patch around chest tube site; memantine for dementia. DISPOSITION: I will transfer patient to [facility] as soon as a bed becomes available. Plan of care discussed with the patient. I also called the patient's and informed her about his clinical course and answered all of her questions. cc: Stanislav Ochoa MD
--- NOTE | 2018-06-06 18:12 | GENERAL SURGERY PROGRESS NOTE ---
DATE: 06/06/2018 SUBJECTIVE: No respiratory complaints. OBJECTIVE: Chest tube output is decreased significantly. No air leak. I have reviewed his x-ray. It is overall about the same. I have reviewed his labs. His pathology is negative for malignancy. ASSESSMENT AND PLAN: This is a gentleman status post right video-assisted thoracoscopic surgery with pleural biopsy. We will need to follow up his cytology. Otherwise, I have water-sealed his tube. We will see his x-ray tomorrow. If output remains low, we will remove his chest tube tomorrow. cc: Fidelina Jean MD
--- NOTE | 2018-06-06 20:33 | PULMONOLOGY PROGRESS NOTE ---
DATE: 06/06/2018 SUBJECTIVE: The patient is awake, alert, and conversant. He reports he is not coughing and has no sputum production. OBJECTIVE: Vital Signs: BP 104/63, heart rate 104, respiratory rate 25, oxygen saturation 92% on nasal cannula. HEENT: Pupils are equal and reactive. Oropharynx appears clear. Neck: Supple. Chest: Crackles at the right base. Cardiac: S1, S2. Abdomen: Soft. Extremities: Without edema. LABORATORIES: Chest x-ray reveals a small amount of residual fluid at the right lateral base. IMPRESSION: A 62-year-old with: 1. Hemorrhagic pleural effusion. 2. Bloody sputum, which has resolved. 3. Hypoxemic respiratory failure. 4. Chronic renal insufficiency. 5. Dementia. 6. Coagulase-negative staphylococcus in sputum, likely a contaminant. RECOMMENDATIONS: 1. Continue to wean oxygen as tolerated. 2. Diet as tolerated. 3. Chest tube management as tolerated. Output continues to decrease. Anticipate discontinuing chest tube soon. 4. Okay for transfer to the floor. cc: Fede Del Valle MD
[2018-06-06] MEDS: ARICEPT PO SCH (21:16)
[2018-06-06] MEDS: AMBIEN PO SCH (21:17)
[2018-06-06] MEDS: VANCOMYCIN 1,500 MG in NS 250 ML IV SCH (21:19)
[2018-06-07] MEDS: DUONEB (A & A) INH SCH ×6 (03:29→23:25)
[2018-06-07] MEDS: MORPHINE IV PRN ×2 (03:59→21:37)
[2018-06-07] MEDS: LOVENOX SUBQ SCH (05:44)
[2018-06-07 06:30] LABS: BASO# 0.03 X1000 (0.0-0.2); BASO% 0.3 % (0.0-0.8); EOS# 0.27 X1000 (0.0-0.7); EOS% 2.8 % (0.0-10.0); HEMATOCRIT 39.4 % (42.0-52.0); HEMOGLOBIN 11.8 g/dL (14.0-18.0); IMM GRAN# 0.39 X1000 (0.0-0.04); IMM GRAN% 4.1 % (0.0-0.5); LYMPH# 1.31 X1000 (1.2-3.4); LYMPH% 13.8 % (20.5-51.1); MCH 25.8 PG (27-31); MCHC 29.9 g/dL (33-37); MCV 86.2 FL (81-99); MONO# 0.92 X1000 (0.11-0.59); MONO% 9.7 % (1.7-9.3); MPV 11.1 FL (7.4-10.4); NEUT% 69.3 % (42.2-75.2); PLT 237 X1000 (130-400); RBC 4.57 XMIL (4.7-6.1); RDW 14.9 % (11.5-14.5); WBC 9.52 X1000 (4.8-10.8)
[2018-06-07] MEDS: MUCOMYST 20% INH SCH ×2 (07:00→19:25)
[2018-06-07 07:29] LABS: EOS 2 % (1-10); LYMPHS 15 % (21-51); MONO 9 % (1-9); SEGS 74 % (42-75)
--- NOTE | 2018-06-07 07:40 | Diag Imaging Result Doc PS360 ---
CHEST-1 VIEW - 06/07/2018 INDICATION: chest tube COMPARISON: 06/06/2018 FINDINGS: Stable right basilar chest tube. There is more fluid and less air at the right basilar hydropneumothorax. This collection overall remains stable in volume. There is some slight infiltrate or scarring in the left lung base stable from prior exams. Heart size remains normal. IMPRESSION: More fluid and less air in the right basilar hydropneumothorax, which overall remains stable in volume. Electronically signed by Chet Hammer 06/07/2018 7:36 AM
[2018-06-07 07:49] LABS: CALCIUM 8.2 mg/dL (8.8-10.2); CREATININE 2.2 mg/dL (0.7-1.2); MAGNESIUM 2.2 mg/dL (1.5-2.7); POTASSIUM 3.2 mmol/L (3.5-5.1)
[2018-06-07] MEDS ORDERED: KLOR-CON PO ONE (07:55)
[2018-06-07] MEDS: LIDODERM TOP SCH (08:33)
[2018-06-07] MEDS: NAMENDA PO SCH ×2 (08:34→21:35)
[2018-06-07] MEDS: CULTURELLE PO SCH ×2 (08:34→21:36)
[2018-06-07] MEDS: LEVAQUIN 750 MG/D5W 750 MG/150 ML IVPB IV SCH (08:34)
[2018-06-07] MEDS: PROZAC PO SCH (08:34)
[2018-06-07] MEDS: COREG PO SCH ×2 (08:34→21:36)
[2018-06-07] MEDS: ZANTAC PO SCH ×2 (08:34→21:36)
[2018-06-07] MEDS: PERICOLACE PO SCH ×2 (08:35→21:35)
[2018-06-07] MEDS: FLORINEF PO SCH (08:35)
[2018-06-07] MEDS: PREDNISONE PO SCH (08:38)
--- NOTE | 2018-06-07 08:46 | PROGRESS NOTE ---
DATE: 06/07/2018 SUBJECTIVE: The patient states that he is feeling better. No acute events overnight. The pleural biopsy showed chronic active inflammation, hemosiderin deposition fibrosis, and granulation tissue, edema. As per the patient, he has been on oxygen even before coming to the hospital. He was placed on oxygen by Dr. Garcia like I said a few weeks coming to the hospital. On the other hand, as per the patient, he does not have any sensation below the knee, but he was able to transfer from the chair to the wheelchair and the toilet. Chest tube is working. I will let Surgery Department to evaluate this patient. This patient seems to be stable today. OBJECTIVE: Vital Signs: Temperature 97.3 degrees, pulse 84, respiratory rate 18, blood pressure 110/69, and oxygen saturation 93 on 5 L of nasal cannula. HEENT: Head normocephalic. No trauma PERRLA. Neck: Supple no JVD. No masses. Central trachea. Chest: Decreased breath sounds bilaterally with some crepitus and mild crackles on the right side, some rales at the bases. Abdomen: Soft, nontender, and nondistended. No hepatosplenomegaly. Extremities: No edema. No clubbing. No cyanosis. Neurological: This patient is alert. He is oriented x3. He is following commands. On the right side, he has a chest tube without air leak. He has bilateral decreased sensation, and also motor activity [id number]. He is able to bend his knee and hip, and do hip movement and flexion. As per the patient, this is chronic. LABORATORY: WBC 9.5, hemoglobin 11.8, hematocrit 39.4, and platelets 237,000. Sodium 143, potassium 3.2, chloride 97, bicarbonate 30, BUN 56, creatinine 2.2, glucose 100 and calcium 8.2. ASSESSMENT AND PLAN: 1. Acute on possible chronic hypoxemic respiratory failure secondary to pneumonia and right-sided hemorrhagic pleural effusion status post bronchoscopy, video-assisted thoracoscopy on 05/31/2018. He has since removed 2 L of serosanguineous to bloody pleural fluid, and pleural biopsies that showed chronic active inflammation, hemosiderin deposition, and fibrosis plus edema with granulation tissue. It looks like he was intubated before the procedure, and extubated on 06/01/2018 with a chest tube placed for the persistent hydropneumothorax. His cultures have been negative. Pulmonary and Surgery Department on board. 2. Possible sepsis with left lower lobe pneumonia, this is better continued with same management. He is on levofloxacin. 3. Hemoptysis on presentation, stable. Hemoglobin and hematocrit has been stable as well. 4. Acute on chronic kidney disease likely secondary to Lasix use which at this moment has been stopped. We will just monitor. 5. Hypokalemia. We will replace the potassium. 6. Remote history of DVT with possible pulmonary embolism. As per the patient, he has an IVC filter. He was on Coumadin followed by Hematology/Oncology Department, but the anticoagulation has been stopped due to his hemorrhagic pleural effusion. 7. History of recurrent syncope and orthostatic hypotension. Continue with fludrocortisone. 8. Hypertension. Continue with same management. Stable. 9. Dementia. Continue with donepezil and memantine. 10. DVT prophylaxis with Lovenox. 11. Coagulase-negative Staphylococcus in sputum likely contaminant. 12. Chronic decrease of sensation and motor activity at the level of the lower extremities especially [id number]. As per the patient, this is chronic. It has been more than a year. He has been followed by his doctor as an outpatient. He is using a wheelchair at home. 13. Overall, this patient seems to be more stable. I think this patient is stable enough to go to the medical floor. I will continue with the same management for now. I will replace the potassium, and hopefully the chest tubes will be removed in the near future. I will ask physical therapy to evaluate this patient for range of motion. cc: Martin Linares MD
--- NOTE | 2018-06-07 14:21 | PULMONOLOGY PROGRESS NOTE ---
DATE: 06/07/2018 SUBJECTIVE: The patient is awake, alert, and conversant. He is without specific complaints. He denies sputum production. OBJECTIVE: Vital Signs: The patient has been afebrile for the last 24 hours. Blood pressure 100/60, heart rate 76, respiratory rate 15, oxygen saturation 97% on nasal cannula. Chest tube output of 45 mL. HEENT: Pupils are equal and reactive. Oropharynx is clear. Neck: Supple. Chest: Reveals diminished breath sounds in the right base. Cardiac Examination: S1, S2. Abdomen: Soft. Extremities: Without edema. Laboratories: White blood count 9.52, hemoglobin 11.8, platelet count 237,000. Sodium 143, potassium 3.2, chloride 97, bicarbonate 30, BUN 56, creatinine 2.2. IMPRESSION: 1. A 62-year-old with hemorrhagic pleural effusion with negative biopsies. 2. Bloody sputum, which has resolved. 3. Hypoxemic respiratory failure. 4. Acute on chronic renal insufficiency. 5. Dementia. RECOMMENDATIONS: 1. Continue to wean O2 per protocol. 2. Anticipate chest tube removal per general surgery. 3. Discontinue vancomycin. The patient's blood culture is most likely a contaminant and he has had increase in his creatinine. 4. Recommend decreasing Levaquin dosing, given chronic renal insufficiency. cc: Fede Del Valle MD
--- NOTE | 2018-06-07 15:37 | Diag Imaging Result Doc PS360 ---
EXAM: CHEST-PORTABLE 06/07/2018 HISTORY: MD order TECHNIQUE: AP portable at 1507 COMMENT: There is what appears to be a loculated hydropneumothorax on the right. This was also present on 06/07/2018 but the quantity of fluid has apparently diminished and the chest tube has been removed. There are atelectatic appearing changes in both bases. This has not changed significantly. The heart size remains slightly enlarged. IMPRESSION: Removal of right chest tube. Slight diminishment in pleural fluid collection on the right. Residual loculated pneumothorax. Electronically signed by Gus Rosenberg 06/07/2018 3:35 PM
--- NOTE | 2018-06-07 19:00 | GENERAL SURGERY PROGRESS NOTE ---
DATE: 06/07/2018 SUBJECTIVE: Pulmonary status continues to improve. OBJECTIVE: Chest x-ray is about the same with some fluid in the lower with some compressive changes over the lower lung. No obvious pneumothorax,. Output has been minimal to none. No air leak to water-seal. I have reviewed his labs and his x-rays. ASSESSMENT AND PLAN: A 62-year-old gentleman with effusion of unclear etiology, most likely spontaneous hemothorax. His biopsies were negative. There were some atypical cells noted on his cytology. Unclear of the clinical significance of that. Plan to remove his chest tube, place an inclusion dressing, and follow his x-ray. If the fluid reaccumulates, we may need to replace the chest tube, but doubtful that this will be the case. We will continue to follow along. cc: Fidelina Jean MD
[2018-06-07] MEDS ORDERED: LEVAQUIN 250 MG/D5W 250 MG/50 ML IVPB IV SCH (20:30)
[2018-06-07] MEDS: ARICEPT PO SCH (21:36)
[2018-06-07] MEDS: AMBIEN PO SCH (21:36)
[2018-06-08] MEDS: DUONEB (A & A) INH SCH ×5 (03:15→23:33)
[2018-06-08] MEDS: LOVENOX SUBQ SCH (05:33)
[2018-06-08 07:23] LABS: CALCIUM 8.4 mg/dL (8.8-10.2); POTASSIUM 3.9 mmol/L (3.5-5.1)
--- NOTE | 2018-06-08 07:26 | Diag Imaging Result Doc PS360 ---
CHEST-PORTABLE - 06/08/2018 INDICATION: dyspnea COMPARISON: 06/07/2018 FINDINGS: Stable small right basilar hydropneumothorax. The left lung remains well expanded and clear. No significant infiltrates. Heart size is top normal. IMPRESSION: No change from prior. Electronically signed by Chet Hammer 06/08/2018 7:23 AM
[2018-06-08] MEDS: MUCOMYST 20% INH SCH ×2 (08:16→19:34)
[2018-06-08] MEDS: LIDODERM TOP SCH (08:21)
[2018-06-08] MEDS: FLORINEF PO SCH (08:21)
[2018-06-08] MEDS: ZANTAC PO SCH ×2 (08:21→20:32)
[2018-06-08] MEDS: LEVAQUIN 250 MG/D5W 250 MG/50 ML IVPB IV SCH (08:21)
[2018-06-08] MEDS: PROZAC PO SCH (08:21)
[2018-06-08] MEDS: CULTURELLE PO SCH ×2 (08:21→20:32)
[2018-06-08] MEDS: COREG PO SCH ×2 (08:21→20:32)
[2018-06-08] MEDS: NAMENDA PO SCH ×2 (08:21→20:32)
[2018-06-08] MEDS: PERICOLACE PO SCH ×2 (08:22→20:32)
[2018-06-08] MEDS: PREDNISONE PO SCH (08:22)
--- NOTE | 2018-06-08 08:41 | PROGRESS NOTE ---
DATE: 06/08/2018 SUBJECTIVE: As per the patient, he is feeling better. He is still complaining of some chest discomfort on the right side, a chest tube has been removed yesterday. X-ray looks about the same compared with the previous one. For me, this patient can be already transferred to the floor. I requested already physical therapy. As per the patient, he is not able to walk. He uses a wheelchair and has been that way for 1 year. OBJECTIVE: Vital Signs: Temperature 97.8 degrees, pulse 73, respiratory rate 21, blood pressure 115/67, and oxygen saturation 98 on 2 L of nasal cannula. HEENT: Head normocephalic. No trauma. PERRLA. Neck: Supple. No JVD. No masses. Central trachea. Chest: Decreased breath sounds at the bases with some crepitus on the right lower thoracic area. Abdomen: Soft, nontender, and nondistended. No hepatosplenomegaly. Extremities: No edema. No clubbing. No cyanosis. Neurological: The patient is alert. He is oriented x3. He is following commands. Bilateral decreased sensation, and also decreased motor activity [id number]. He is able to bend his knee, and he can do hip flexion. As per the patient, this is chronic. LABORATORY: Sodium 139, potassium 3.9, chloride 98, bicarbonate 30, BUN 48, creatinine 2, glucose 84, and calcium 8.4. ASSESSMENT AND PLAN: 1. Acute on likely chronic hypoxemic respiratory failure secondary to pneumonia and right-sided hemorrhagic pleural effusion status post bronchoscopy. Video-assisted thoracoscopy on 05/31/2018. It looks like 2 L of fluid/serosanguineous to bloody pleural effusion was removed. The pleural biopsies showed chronic active inflammation, hemosiderin deposition, and fibrosis plus edema with granulation tissue. He was intubated for the procedure and then extubated on 06/01/2018. Chest tube was placed and removed yesterday. Pulmonary Department and Surgery Department on board. The cytology showed rare atypical cells present in the cell block, contains mostly erythrocytes with scattered reactive mesothelial cells and acute on chronic inflammation. I am not quite sure if this is significant. 2. Likely sepsis with left lower lobe pneumonia, this is better. Continue with same management. He is on levofloxacin. 3. Hemoptysis on presentation, stable. Hemoglobin and hematocrit have been stable. 4. Acute on chronic kidney disease likely secondary to Lasix use. At this moment, it has been stopped and he seems to be more stable. 5. Hypokalemia, resolved. 6. Remote history of DVT with possible pulmonary embolism. As per the patient, he has an IVC filter. He was on Coumadin followed by Hem/Onc Department. Anticoagulation has been stopped due to hemorrhagic pleural effusion. 7. History of recurrent syncope and orthostatic hypotension. Continue with fludrocortisone. 8. Hypertension. Continue with the same management. Stable. 9. Dementia. Continue with donepezil and memantine. 10. Deep vein thrombosis prophylaxis with Lovenox. 11. Coagulase-negative Staphylococcus in the sputum, likely contaminant. 12. Chronic decrease of sensation and motor activity at the level of the lower extremities, especially below the knee, this is chronic. As per the patient, he was using a wheelchair at home and he was able to transfer from the wheelchair to the bed commode. 13. Overall, this patient seems to be more stable. He has been transferred to the medical floor. We will continue with the same management for now. I will follow the recommendations of Surgery and Pulmonary Department. cc: Martin Linares MD
--- NOTE | 2018-06-08 10:58 | HEMO/ONC PROGRESS NOTE ---
DATE: 06/08/2018 CHIEF COMPLAINT: "I am feeling better." SUBJECTIVE: The patient is lying supine in bed. He has no dyspnea or complaints of pain. He reports that he is weak but is feeling better every day. OBJECTIVE: Vital Signs: Temperature 97.2 degrees, blood pressure 100/71, heart rate 84, respirations 17, O2 saturation 92% on 2 L nasal cannula O2. HEENT: Normocephalic, atraumatic. Mucous membranes are pink and moist. Sclerae anicteric. Extraocular movements intact. Neck: Supple. Lungs: Clear to auscultation except for some coarse breath sounds in the bases. CV: S1-S2 is heard. No murmurs, rubs or gallops. Abdomen: Nondistended. Extremities: Without clubbing, cyanosis, or edema. Dermatologic: No rashes, bruises or lesions. Neurologic: The patient is awake, alert, and oriented x3 and has no focal deficit. LABORATORY DATA: Hemoglobin 11.8, hematocrit 39.4, white blood cell count 9.52, platelets 237,000. Sodium 139, potassium 3.9, chloride 98, CO2 is 30, BUN 48, creatinine 2.0 and glucose is 84. ASSESSMENT AND PLAN: 1. History of deep venous thrombosis and pulmonary embolus, recently on Coumadin. Admitted with supratherapeutic level and hemoptysis. The patient was subsequently taken off of Coumadin and is currently on Lovenox 40 subcu daily. We will continue to monitor and return the patient to anticoagulation when appropriate. 2. Left lower lobe pneumonia and sepsis. The patient is currently on levofloxacin at the direction of Infectious Disease. 3. Acute on chronic kidney disease secondary to Lasix. Would follow CMP. Counts are stable. 4. Hypokalemia, resolved status post repletion of potassium. 5. We will follow along with you and make further recommendations pending outcomes. The above reflects the history, exam, assessment, and plan of Dr. Pa. Dictated by JOSH Harvey for Kristen Pa MD cc: JOSH Harvey MD I have seen and examined the patient and the above note reflects my history, physical, assessment and plan. Kristen HINTON
--- NOTE | 2018-06-08 13:20 | GENERAL SURGERY PROGRESS NOTE ---
DATE: 06/08/2018 SUBJECTIVE: Doing well. Breathing comfortably. X-ray is overall stable after his chest tube is removed. OBJECTIVE: Vital Signs: I reviewed his vital signs. General: He is in no acute distress. He is on nasal cannula. Cardiovascular: Normal rate. LABORATORY DATA: I reviewed his labs. ASSESSMENT AND PLAN: The patient is a 62-year-old gentleman with right-sided spontaneous pneumothorax related to supratherapeutic international normalized ratio. His pneumonia seems to be improving. His chest tube is out. We will follow along. cc: Fidelina Jean MD
[2018-06-08] MEDS: AMBIEN PO SCH (20:32)
[2018-06-08] MEDS: ARICEPT PO SCH (20:32)
[2018-06-09] MEDS: DUONEB (A & A) INH SCH ×6 (03:36→23:24)
[2018-06-09] MEDS: LOVENOX SUBQ SCH (05:31)
[2018-06-09 07:26] LABS: BASO# 0.03 X1000 (0.0-0.2); BASO% 0.4 % (0.0-0.8); EOS# 0.23 X1000 (0.0-0.7); EOS% 2.8 % (0.0-10.0); HEMATOCRIT 41.4 % (42.0-52.0); HEMOGLOBIN 12.6 g/dL (14.0-18.0); IMM GRAN# 0.42 X1000 (0.0-0.04); IMM GRAN% 5.1 % (0.0-0.5); LYMPH# 1.28 X1000 (1.2-3.4); LYMPH% 15.5 % (20.5-51.1); MCH 26.2 PG (27-31); MCHC 30.4 g/dL (33-37); MCV 86.1 FL (81-99); MONO# 0.82 X1000 (0.11-0.59); NEUT# 5.46 X1000 (1.4-6.5); NEUT% 66.2 % (42.2-75.2); PLT 255 X1000 (130-400); RBC 4.81 XMIL (4.7-6.1); RDW 15.1 % (11.5-14.5); WBC 8.24 X1000 (4.8-10.8)
[2018-06-09 07:36] LABS: CALCIUM 8.8 mg/dL (8.8-10.2); CREATININE 1.9 mg/dL (0.7-1.2); MAGNESIUM 2.2 mg/dL (1.5-2.7); POTASSIUM 3.5 mmol/L (3.5-5.1)
--- NOTE | 2018-06-09 07:41 | Diag Imaging Result Doc PS360 ---
EXAM: CHEST-PORTABLE INDICATION: dyspnea TECHNIQUE: One view COMPARISON: 06/08/2018 FINDINGS: The small right hydropneumothorax at the lung base is essentially stable. No new consolidation is identified. Cardiac silhouette is stable. IMPRESSION: Stable chest. Electronically signed by Geovanny Dowd 06/09/2018 7:39 AM
[2018-06-09 08:18] LABS: BANDS 2 % (0-1); EOS 2 % (1-10); LYMPHS 14 % (21-51); MONO 8 % (1-9); SEGS 72 % (42-75)
[2018-06-09] MEDS: MUCOMYST 20% INH SCH ×2 (08:30→19:26)
[2018-06-09] MEDS: PERICOLACE PO SCH ×2 (08:50→20:10)
[2018-06-09] MEDS: PROZAC PO SCH (08:50)
[2018-06-09] MEDS: NAMENDA PO SCH ×2 (08:50→20:10)
[2018-06-09] MEDS: CULTURELLE PO SCH ×2 (08:51→20:10)
[2018-06-09] MEDS: ZANTAC PO SCH ×2 (08:51→20:10)
[2018-06-09] MEDS: LEVAQUIN 250 MG/D5W 250 MG/50 ML IVPB IV SCH (08:51)
[2018-06-09] MEDS: PREDNISONE PO SCH (08:51)
[2018-06-09] MEDS: COREG PO SCH ×2 (08:51→20:10)
--- NOTE | 2018-06-09 11:05 | PROGRESS NOTE ---
DATE: 06/09/2018 SUBJECTIVE: This patient is feeling better. He is still complaining of some chest pain on the right side where the chest tube was removed, also he is complaining of generalized weakness, decreased appetite, and some shortness of breath. He has been followed by Dr. Garcia as an outpatient and, as per the patient, he was on home oxygen that Dr. Garcia started around 2 weeks prior to admission. I do believe this patient can be discharged in the next 48 hours. We will continue physical therapy. I encouraged the patient to eat more so he can get his strength back. As per the patient, he was not able to walk at home because of loss of sensation from his knee down. OBJECTIVE: Vital Signs: Temperature 97.6 degrees, pulse 67, respiratory rate 18, blood pressure 144/75, oxygen saturation 100% on 3 L of nasal cannula. HEENT: Head normocephalic. No trauma. PERRLA. Neck: Supple. No JVD. No masses. Central trachea. Chest: Decreased breath sounds at the bases with some crepitus in the right lower thoracic area. The wound looks clean, dry and intact, covered. Abdomen: Soft, nontender, nondistended. No hepatosplenomegaly. Extremities: No edema. No clubbing. No cyanosis. Neurological: The patient is alert, he is oriented x3. He is following commands. Bilateral decreased sensation and also decreased motor activity below-the- knee. He is able to bend his knee and have hip flexion, this is chronic as per the patient. LABORATORY DATA: WBC 8.2, hemoglobin 12.6, hematocrit 41.4, and platelets 255,000. Sodium 142, potassium 3.5, chloride 101, bicarbonate 28, BUN 41, creatinine 1.9, glucose 91, calcium 8.8, magnesium 2.2. ASSESSMENT AND PLAN: 1. Acute on likely chronic hypoxemic respiratory failure secondary to pneumonia and right-sided hemorrhagic pleural effusion status post bronchoscopy, video-assisted thoracoscopy on 05/31/2018. It looks like 2 L of fluid/serosanguineous material was removed at that time. The pleural biopsy showed chronic active inflammation, hemosiderin deposition and fibrosis plus edema with granulation tissue. He was intubated for the procedure and then extubated on 06/01/2018. Chest tube was placed and removed 2 days ago. Pulmonary Department and Surgery Department on board. Cytology showed rare atypical cells present in the cell block, contains mostly erythrocytes with scattered reactive mesothelial cells and acute on chronic inflammation. I am not quite sure if this is significant. He will follow up with his Hematology Oncology as an outpatient. 2. Sepsis with left lower lobe pneumonia, this is better. Continue with same management. He is on levofloxacin. 3. Hemoptysis on presentation, resolved. 4. Acute on chronic kidney disease, likely secondary to Lasix use, at this moment this is his baseline. 5. Hypokalemia, resolved. 6. History of deep venous thrombosis and pulmonary embolism. As per the patient, he has an IVC filter, he was on Coumadin, followed by Hematology Oncology Department, anticoagulation has been stopped due to a hemorrhagic pleural effusion. Yesterday, Hematology Oncology Department evaluated this patient and they suggested to restart Coumadin when appropriate. 7. History of recurrent syncope and orthostatic hypotension. Continue with fludrocortisone. 8. Hypertension. Continue with same management. Stable. 9. Dementia. Continue with donepezil and memantine. 10. Deep vein thrombosis prophylaxis with Lovenox for now. 11. Coagulase-negative Staphylococcus in the sputum, likely a contaminant. 12. Chronic decrease of sensation and motor activity at the level of the lower extremities, especially below the knee. I am not quite sure about the cause, but this is chronic. As per the patient, he has been using a wheelchair at home and he was able to transfer from the wheelchair to a bed commode. Overall, this patient seems to be more stable. Now he is on a medical floor. We will continue with the same management. I think he is getting better. We will restart his warfarin in the future once he is more stable, once Surgery Department states that he is safe to do it. He has chronic problems with loss of sensation at the level of the lower extremities, especially below the knee and motor activity, this has been happening for at least 1 year. He was using a wheelchair at home and he was able to move from the wheelchair to a bedside commode. As per the patient, he was placed on oxygen 2 weeks before coming to the hospital due to hypoxemia. Likely he will need to go home with oxygen again. This patient should go home probably in 42 hours or more, depending on Surgery Department and Pulmonary Department. cc: Martin Linares MD
--- NOTE | 2018-06-09 13:10 | GENERAL SURGERY PROGRESS NOTE ---
DATE: 06/09/2018 SUBJECTIVE: He has moved to the floor. No fevers. No tachycardia. Oxygen saturation 100% on 3 L. Generally, he is alert. His right chest dressing is in place with no cellulitis. There is no increased work of breathing. White count is 8, hematocrit 41, creatinine is 1.9. ASSESSMENT AND PLAN: A 62-year-old gentleman with a right-sided effusion. Pleural biopsy negative. Cytology showed atypical cells; this is of undetermined significance. Chest x-ray overall has been stable status post chest tube removal. Oncology is following. We will defer management to them, and will monitor him closely, but from a pulmonary standpoint is much improved. cc: Fidelina Jean MD
[2018-06-09] MEDS: FLORINEF PO SCH (14:44)
[2018-06-09] MEDS: LIDODERM TOP SCH (14:44)
[2018-06-09] MEDS: ARICEPT PO SCH (20:10)
[2018-06-09] MEDS: AMBIEN PO SCH (20:10)
[2018-06-10] MEDS: DUONEB (A & A) INH SCH ×5 (03:42→20:00)
[2018-06-10] MEDS: LOVENOX SUBQ SCH (05:03)
[2018-06-10 06:56] LABS: BASO# 0.02 X1000 (0.0-0.2); BASO% 0.2 % (0.0-0.8); EOS# 0.26 X1000 (0.0-0.7); EOS% 2.8 % (0.0-10.0); HEMATOCRIT 38.7 % (42.0-52.0); HEMOGLOBIN 11.6 g/dL (14.0-18.0); IMM GRAN# 0.35 X1000 (0.0-0.04); IMM GRAN% 3.8 % (0.0-0.5); LYMPH# 1.55 X1000 (1.2-3.4); LYMPH% 16.8 % (20.5-51.1); MCH 26.1 PG (27-31); MONO# 1.07 X1000 (0.11-0.59); MONO% 11.6 % (1.7-9.3); MPV 10.8 FL (7.4-10.4); NEUT# 5.99 X1000 (1.4-6.5); NEUT% 64.8 % (42.2-75.2); PLT 247 X1000 (130-400); RBC 4.45 XMIL (4.7-6.1); RDW 15.1 % (11.5-14.5); WBC 9.24 X1000 (4.8-10.8)
[2018-06-10 07:17] LABS: AGAP 11; BUN 33 mg/dL (8-22); CALCIUM 8.6 mg/dL (8.8-10.2); CHLORIDE 100 mmol/L (98-107); CHOLESTEROL 181 mg/dL (0-200); COSMO 287; CREATININE 1.8 mg/dL (0.7-1.2); ESTIMATED GFR 38; GLUCOSE 99 mg/dL (70-104); HDL 33 mg/dL (35-55); LDL 117 mg/dL; MAGNESIUM 2.2 mg/dL (1.5-2.7); POTASSIUM 3.5 mmol/L (3.5-5.1); SODIUM 140 mmol/L (136-145); TCO2 29 mmol/L (25-35); TRIGLYCERIDES 154 mg/dL (39-160); VLDL 31 mg/dL
[2018-06-10] MEDS: MUCOMYST 20% INH SCH ×2 (07:44→20:00)
[2018-06-10] MEDS: LIDODERM TOP SCH (09:55)
[2018-06-10] MEDS: PREDNISONE PO SCH (09:56)
[2018-06-10] MEDS: PROZAC PO SCH (09:57)
[2018-06-10] MEDS: CULTURELLE PO SCH ×2 (09:58→20:54)
[2018-06-10] MEDS: PERICOLACE PO SCH ×2 (09:58→20:54)
[2018-06-10] MEDS: NAMENDA PO SCH ×2 (09:58→20:53)
[2018-06-10] MEDS: FLORINEF PO SCH (09:59)
[2018-06-10] MEDS: COREG PO SCH ×2 (10:00→20:53)
[2018-06-10] MEDS: ZANTAC PO SCH ×2 (10:00→20:53)
--- NOTE | 2018-06-10 13:59 | PROGRESS NOTE ---
DATE: 06/10/2018 SUBJECTIVE: Patient is resting comfortably in bed. His is present in the room. Not in any obvious distress at this time. OBJECTIVE: Vital signs: Temperature 98.6 degrees, pulse 79, respiratory rate 20, blood pressure is 122/68, oxygen saturation 98%. HEENT: Atraumatic, normocephalic. Cardiovascular: S1, S2. Respiratory: Has evidence of good air entry bilaterally. Abdomen: Soft, nontender. No masses felt. Extremities: No evidence of edema. Central nervous system: No obvious focal deficits noted. LABORATORIES: WBC is 9.24, hematocrit 38.7, with a platelet count of 247,000. Sodium is 140, potassium 3.5, chloride is 100, bicarb 29, BUN is 20, creatinine is 1.8. IMAGING: X-ray of the chest shows a small right hydropneumothorax in the lung base. No new consolidation is identified. This x-ray was done on 06/09/2018. ASSESSMENT AND PLAN: 1. Acute on chronic respiratory failure. Continue oxygen supplementation. The patient seemed to have had a complicated pulmonary course. He is status post bronchoscopy as well as video- assisted thoracoscopy on 05/31/2018. He had a pleural biopsy done, which showed chronic active inflammation from hemosiderin deposition, as well as fibrosis + edema with granulation tissue. The patient was extubated on 06/01/2018. He had a chest tube placed which was has since been removed. The patient is being followed by the Pulmonary Team. 2. Sepsis with pneumonia. Continue antibiotics. 3. Hemoptysis, resolved. 4. Acute on chronic kidney disease. Follow up on renal function. Avoid nephrotoxic agents. Medication dose will need to be adjusted for renal function if needed. 5. History of deep venous thrombosis as well as pulmonary embolus. Patient is status post inferior vena cava filter. Coumadin can be started at a later date when patient is more stable and it is safe to do so. 6. History of recurrent syncope as well systolic hypertension. Continue fludrocortisone. 7. Hypertension. Continue current regimen. 8. Dementia. Continue donepezil as well as memantine. 9. Deep vein thrombosis prophylaxis. Patient is on Lovenox. Overall, I think the patient seemed to have done fairly well. He is currently stable. I will reassess him tomorrow and see if it is possible for him to get discharged. I spoke with the and she indicates that they have all the durable medical equipment needed, including oxygen, and it seems that she they have had home health services previously set up. cc: Maurice Pierce MD
[2018-06-10] MEDS: ARICEPT PO SCH (20:54)
[2018-06-10] MEDS: AMBIEN PO SCH (20:54)
[2018-06-11] MEDS: DUONEB (A & A) INH SCH ×3 (05:03→11:30)
[2018-06-11] MEDS: LOVENOX SUBQ SCH (05:58)
[2018-06-11] MEDS: MUCOMYST 20% INH SCH (07:30)
[2018-06-11 07:40] LABS: BASO# 0.04 X1000 (0.0-0.2); BASO% 0.4 % (0.0-0.8); EOS# 0.33 X1000 (0.0-0.7); EOS% 3.5 % (0.0-10.0); HEMATOCRIT 38.1 % (42.0-52.0); HEMOGLOBIN 11.4 g/dL (14.0-18.0); IMM GRAN% 3.2 % (0.0-0.5); LYMPH# 1.74 X1000 (1.2-3.4); LYMPH% 18.4 % (20.5-51.1); MCHC 29.9 g/dL (33-37); MCV 86.8 FL (81-99); MONO# 1.11 X1000 (0.11-0.59); MONO% 11.7 % (1.7-9.3); MPV 11.5 FL (7.4-10.4); NEUT# 5.93 X1000 (1.4-6.5); NEUT% 62.8 % (42.2-75.2); PLT 242 X1000 (130-400); RBC 4.39 XMIL (4.7-6.1); RDW 14.9 % (11.5-14.5); WBC 9.45 X1000 (4.8-10.8)
[2018-06-11 07:47] VITALS: BP 132/73
[2018-06-11 07:59] LABS: CALCIUM 8.5 mg/dL (8.8-10.2); MAGNESIUM 2.2 mg/dL (1.5-2.7); POTASSIUM 3.5 mmol/L (3.5-5.1)
[2018-06-11] MEDS: LIDODERM TOP SCH (10:34)
[2018-06-11] MEDS: CULTURELLE PO SCH (10:34)
[2018-06-11] MEDS: NAMENDA PO SCH (10:34)
[2018-06-11] MEDS: FLORINEF PO SCH (10:34)
[2018-06-11] MEDS: COREG PO SCH (10:35)
[2018-06-11] MEDS: PREDNISONE PO SCH (10:35)
[2018-06-11] MEDS: ZANTAC PO SCH (10:35)
[2018-06-11] MEDS: PROZAC PO SCH (10:35)
[2018-06-11] MEDS: LEVAQUIN 250 MG/D5W 250 MG/50 ML IVPB IV SCH ×2 (10:43→11:31)
[2018-06-11] MEDS: PERICOLACE PO SCH (10:43)
--- NOTE | 2018-06-11 16:29 | DISCHARGE SUMMARY ---
ADMISSION DATE: 05/30/2018 DISCHARGE DATE: 06/11/2018 PRINCIPAL DIAGNOSIS: Is that of Coumadin overdose which is now resolved. SECONDARY DIAGNOSES: 1. Acute respiratory failure. 2. Bilateral pleural effusion. 3. Probable left upper lobe aspiration pneumonia. 4. Acute kidney injury. 5. Hypokalemia. 6. Orthostatic hypertension. 7. Dysautonomia. 8. Hypertension. 9. Dementia. 10. Chronic pain syndrome. 11. History of deep venous thrombosis as well as pulmonary embolus. 12. Coronary artery disease. 13. Copper deficiency. 14. Gastroesophageal reflux disease. 15. Sepsis. 16. Hemoptysis which is now resolved. DISCHARGE MEDICATIONS: 1. Levaquin 250 mg p.o. daily for the next 7 days. 2. Docusate sodium 2 tabs twice a day. 3. Omeprazole 20 mg p.o. in the morning. 4. Ranitidine 115 mg p.o. twice a day. 5. Probiotic as directed. 6. Ambien 5 mg p.o. at bedtime. 7. Namenda 10 mg p.o. twice a day. 8. Donepezil 10 mg p.o. at bedtime. 9. Florinef 0.1 mg p.o. in the morning. 10. Fluoxetine 40 mg p.o. daily. 11. Hydralazine 25 mg p.o. twice a day. 12. Alprazolam 0.5 mg p.o. once a day. 13. ProAir every 4 hours as needed. 14. Prednisone 50 mg p.o. daily. 15. Phenergan 25 every 6 hours as needed. 16. Tizanidine 4 mg p.o. every 8 hours. 17. Warfarin 4 mg p.o. daily. 18. Coreg 6.25 mg p.o. twice a day. CONSULTATIONS DONE DURING THIS HOSPITAL STAY: Dr. Cruz pulmonology. Dr. Sherman surgery. Dr. Pa, hematology oncologist. SPECIAL PROCEDURES: Chest CT for 05/30/2018, echo 05/31/2018. The patient did have video- assisted thoracoscopy with drainage of right pleural effusion as well as a pleural biopsies along with bronchoscopy. On 06/03/2018 the patient had a chest CT. HOSPITAL COURSE: Mr. Juan C Alonzo is a 62-year-old male who was admitted to the hospital because of shortness of breath as well as hemoptysis apparently patient INR was high at about 1.6. This was corrected using vitamin K. The patient's chest CT showed loculated right pleural effusion with possible pleural implants. There is also secondary compressive atelectasis. Recurrent atelectasis or pneumonia in the left lower lobe. Patchy pneumonia in the left lower lobe. The patient was seen by the surgical team because of pleural effusion. The patient subsequently had a video-assisted thoracoscopic drainage of right pleural effusion as well as a pleural biopsy and also bronchoscopy. The patient was also seen by the pulmonary team. The patient was maintained on antibiotics for presumed pneumonia. Pathology report from the pleural fluid showed evidence of atypical cells. The patient seemed to have done well. He is currently very much stable. EVALUATION: During my evaluation today, his vital signs as follows. Temperature 97.8 degrees, pulse 65 respirations 20, blood pressure 130/70, oxygen 100%. HEENT: Atraumatic, normocephalic. Cardiovascular: S1, S2. Respiratory system: Has evidence of good entry bilaterally. Abdomen: Soft, nontender. No masses. Extremities: No evidence of edema. Central nervous system: No obvious focal deficit noted. PLAN: Will be to discharge the patient home today to continue antibiotics in the outpatient. The patient will need to follow up with his oncologist with regards to lung masses which he has on the right side. Also, the patient will need to have his coagulation profile closely monitored while he continues his Coumadin ( follow up at coumadin clinic). cc: Maurice Pierce MD MTDD
[2018-06-12] MEDS ORDERED: LEVAQUIN PO SCH ×2 (09:00)
== END 2018-06-11 14:03 | disposition home health service (06) | DRG 853 ==
LOC: SUPCPDRO → ED 10:44 → SUATTDRO 13:20 → EDIPHOLD 13:20 → ICU 05-31 03:45 → 4N 06-08 14:06
PROVIDERS: ATTEND Internal Medicine
PROC: GE.THRS (2018-05-31 09:57)
CPT/HCPCS: 71010; 71045; 71250; 80048; 80053; 80061; 80076; 80202; 81001; 82378; 82550; 82553; 82805; 83605; 83735; 83880; 84100; 84484; 85025; 85379; 85610; 85730; 87040; 87070; 87077; 87205; 87449; 87899; 88112; 88305; 88313; 89220; 93005; 93306; 94002; 94003; 94640; 94660; 94667; 94668; 94760; 94761; 94799; 96365; 96366; 96367; 96368; 96375; 96376; 97110; 97162; 97530; 99285; A9270; C1725; C8929; C9113; J0330; J0692; J1650; J1940; J1956; J2270; J2405; J2543; J2920; J3370; J3430; J3475; J3480; J7040; J7050; J7120; J7506; J7512; Q9957; S0164